=== PATIENT | male | born 1960 ===

== ENCOUNTER 2025-02-07 17:23 | Inpatient (IN) | payer SELFPAY ==
[2025-02-07 17:35] LABS: Glucose,Whole Blood 214 mg/dL (70-110)
[2025-02-07] MEDS: ETOMIDATE 2 MG/ML 10 ML VIAL IVP STA (17:40)
[2025-02-07] MEDS: ROCURONIUM 10 MG/ML (5 ML VIAL) IV STA (17:42)
[2025-02-07 18:06] LABS: ABG Base Excess -4.4 mmol/L; ABG HCO3 22 mmol/L (21-25); ABG Oxygen Saturation 99.8 % (94-97); ABG PCO2 46 mmHg (35-45); ABG PO2 244 mmHg (83-108); ABG TCO2 24 mmol/L (19-24); Allen Test Performed? Yes
[2025-02-07] MEDS: SODIUM CHLORIDE 0.9% 1,000 ML IV STA (18:11)
[2025-02-07 18:15] LABS: HGB 14.5 g/dL (13.0-17.0); MCHC 34.5 g/dL (32.0-37.0); MCV 89.9 fL (80.0-97.0); Mean Platelet Volume 10.6 fL (9.5-12.2); Platelet Count 229 10*3/uL (140-440); RBC 4.67 10*6/uL (4.40-5.60); RDW 12.1 % (11.5-14.5); WBC 13.43 10*3/uL (4.50-10.00)
[2025-02-07 18:21] LABS: ALT 94 U/L (4-49); African American GFR (CKD) 81 (>60 ml/min/1.73 sqM); Albumin 4.2 g/dL (3.5-5.0); Alcohol <10 mg/dL; Anion Gap 19 mmol/L; Blood Urea Nitrogen 21 mg/dL (9-20); Calcium 8.7 mg/dL (8.4-10.2); Carbon Dioxide 20 mmol/L (22-30); Chloride 101 mmol/L (98-107); Glucose 189 mg/dL (74-99); Non-African American GFR(CKD) 70 (>60 ml/min/1.73 sqM); Sodium 140 mmol/L (137-145); Total Bilirubin 0.5 mg/dL (0.2-1.3); Total Protein 6.8 g/dL (6.3-8.2)
[2025-02-07 18:22] LABS: AST 112 U/L (17-59); Alkaline Phosphatase 70 U/L (38-126); Potassium 3.7 mmol/L (3.5-5.1)
[2025-02-07 18:29] LABS: NT-Pro-B-Type Natriuretic Pept 181 pg/mL
[2025-02-07 18:34] LABS: Prothrombin Time 10.6 sec (10.0-12.5)
[2025-02-07 18:40] LABS: Appearance,Urine Clear (Clear); Bilirubin,Urine Negative (Negative); Blood,Urine Small (Negative); Color,Urine Colorless; Glucose,Urine (UA) Trace (Negative); Ketones,Urine Negative (Negative); Leukocyte Esterase,Urine Negative (Negative); Mucus,Urine Rare /hpf; Nitrite,Urine Negative (Negative); PH, Urine 6.5 (5.0-8.0); Protein,Urine 2+ (Negative); RBC,Urine 3 /hpf (0-5); Urobilinogen,Urine <2.0 mg/dL (<2.0); WBC,Urine 6 /hpf (0-5)
[2025-02-07 18:42] LABS: Partial Thromboplastin Time 21.1 sec (22.0-30.0)
[2025-02-07 18:44] LABS: Lymphocytes # (M) 8.19 k/uL (1.0-4.8); Monocytes # (M) 0.81 k/uL (0-1.0); Neutrophils # (M) 4.43 k/uL (1.3-7.7); Neutrophils % (M) 33 %; Nucleated Red Blood Cells 0 /100 WBC (0-0); Total Cells Counted 100
[2025-02-07 18:45] LABS: Large Platelets Present; Polychromasia Present
[2025-02-07 18:50] LABS: Amphetamine Screen,Urine Not Detected (NotDetected); Barbiturate Screen,Urine Not Detected (NotDetected); Benzodiazepines Screen,Urine Not Detected (NotDetected); Cocaine Screen,Urine Not Detected (NotDetected); Methadone Screen, Urine Not Detected (NotDetected); Opiate Screen,Urine Not Detected (NotDetected); Oxycodone Screen, Urine Not Detected (NotDetected); Phencyclidine Screen,Urine Not Detected (NotDetected); Tricyclic Antidepressant,Urine Not Detected (NotDetected); Urn Cannabinoid Scrn Not Detected (NotDetected)
[2025-02-07] MEDS: ASPIRIN 300 MG SUPP RECTAL STA (18:55)
--- NOTE | 2025-02-07 19:27 | CT ---
EXAMINATION TYPE: CT brain melvin wo con DATE OF EXAM: 02/07/2025 6:55 PM COMPARISON: None. CLINICAL INDICATION: Male, 64 years old with history of arrest, fall, cardiac arrest, fall, pain TECHNIQUE: CT of the brain is performed utilizing 3 mm thick sections through the posterior fossa and 3 mm thick sections through the remaining calvarium. Study is performed within 24 hours of arrival to the hospital. Contrast used: mL of , (none if empty) CT DLP: 1715.1 mGycm, Automated exposure control for dose reduction was used. FINDINGS: No abnormal hyperdensity is present to suggest an acute intracranial hemorrhage. No mass lesion is evident. No acute infarcts are evident. Ventricles and sulci are appropriate for the patient age. Paranasal sinuses and mastoid air cells within the [id number] are clear. IMPRESSIONS: 1. No acute intracranial process. Follow-up MRI can be performed as clinically indicated. CT cervical spine. COMPARISON: None TECHNIQUE: CT of the cervical spine is performed in the axial plane at 2 mm thick sections. Reconstr ucted images in the coronal, and sagittal plane are reviewed on the computer. FINDINGS: No acute fractures are evident. Vertebral body alignment is normal. Degenerative mild loss of disc height is present C3-4 C4-5 C5-6 and C6-7. Small amount spondylosis is present. Vertebral body heights are preserved. There is some posterior longitudinal ligament calcification at the C4-5 level. This has mild anterior thecal sac compression. No AP spinal canal stenosis is present. Neural foramen are patent. No neural foraminal stenosis is evident. Endotracheal tube tip is above the fr[place]. Nasogastric tube is present within the [id number]. IMPRESSION: 1. Degenerative disc changes with some mild endplate changes most notably C4-5. No spinal canal steno sis is present. 2. No acute osseous abnormality radiographically apparent [facility], , 02/07/2025 7:25 PM
--- NOTE | 2025-02-07 19:29 | XR ---
EXAMINATION TYPE: XR chest 1V portable DATE OF EXAM: 02/07/2025 6:17 PM COMPARISON: None. CLINICAL INDICATION: Male, 64 years old with history of post intubation, Central line, gastric line, TECHNIQUE: XR chest 1V portable view(s) obtained. FINDINGS: The heart size is normal. The pulmonary vasculature is normal. Left lower lobe infiltrate with air bronchograms appears to be present. Correlate for pneumonia. Foll ow-up is recommended. Endotracheal tube tip is 2.8 cm above the fransisco. Nasogastric tube transverses the thorax. IMPRESSION: 1. Left lower lobe infiltrate. Correlate for pneumonia. 2. Lines and catheters discussed above. [facility], , 02/07/2025 7:27 PM
[2025-02-07] MEDS ORDERED: NALOXONE 0.4 MG/ML 1 ML VIAL IV PRN (19:57)
[2025-02-07] MEDS ORDERED: Potassium Replacement Protocol 1 EACH MISC MISCELLANE PRN (19:57)
[2025-02-07] MEDS ORDERED: Magnesium Replacement Protocol 1 EACH MISC MISCELLANE PRN (19:57)
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
[2025-02-07] MEDS: DEXTROSE 5% IN WATER 100 ML with AMIODARONE 150 MG IV ONE (20:16)
[2025-02-07] MEDS: AMIODARONE 360 MG in DEXTROSE 5% IN WATER 200 ML IV ONE (20:41)
[2025-02-07] MEDS: SODIUM CHLORIDE 0.9% 1,000 ML IV SCH (21:59)
[2025-02-07] MEDS: POTASSIUM CHLORIDE 10 MEQ in WATER FOR INJECTION 1 100ML.BAG IVPB SCH (22:37)
[2025-02-08 00:12] LABS: Glucose,Whole Blood 122 mg/dL (70-110)
[2025-02-08] MEDS: AMIODARONE 450 MG in DEXTROSE 5% IN WATER 250 ML IV SCH (01:32)
--- NOTE | 2025-02-08 02:50 | XR ---
EXAM: XR Chest, 1 View CLINICAL HISTORY: ITS.REASON XR Reason: central line placement TECHNIQUE: Frontal view of the chest. COMPARISON: No previous studies. FINDINGS: Lungs: Unremarkable. No consolidation. Pleural space: Unremarkable. No pneumothorax. Heart: Cardiomegaly. Mediastinum: Unremarkable. Normal mediastinal contour. Bones/joints: Unremarkable. No acute fracture. Tubes, lines and devices: The side-port of NG tube is near the gastroesophageal junction. As a precaution measure, advised that NG tube be advanced 3-4 cm. Endotracheal tube is noted in place with its distal tip approximate 4.6 cm of the fransisco. NG tube is noted in place with its tip and side-port below the diaphragm. Other findings: Hypoaeration. IMPRESSION: 1. Endotracheal tube is in good position. 2. Tip of the NG tube is below the diaphragm. 3. The side-port is near the gastroesophageal junction. 4. I advised that NG tube be advanced by 3-4 cm. 5. Hypoaeration. 6. Cardiomegaly.
[2025-02-08 03:32] LABS: Basophils # (A) 0.04 10*3/uL (0.00-0.10); Basophils % (A) 0.3 %; Eosinophils # (A) 0.01 10*3/uL (0.04-0.35); Eosinophils % (A) 0.1 %; HCT 38.7 % (39.6-50.0); HGB 13.4 g/dL (13.0-17.0); Lymphocytes # (A) 1.11 10*3/uL (0.90-5.00); Lymphocytes % (A) 7.8 %; MCHC 34.6 g/dL (32.0-37.0); MCV 89.6 fL (80.0-97.0); Mean Platelet Volume 10.3 fL (9.5-12.2); Monocytes # (A) 1.08 10*3/uL (0.20-1.00); Monocytes % (A) 7.6 %; Neutrophils # (A) 11.94 10*3/uL (1.80-7.70); Neutrophils % (A) 83.7 %; Platelet Count 198 10*3/uL (140-440); RBC 4.32 10*6/uL (4.40-5.60); RDW 12.2 % (11.5-14.5); WBC 14.25 10*3/uL (4.50-10.00)
[2025-02-08 04:18] LABS: ALT 92 U/L (4-49); AST 82 U/L (17-59); African American GFR (CKD) >90 (>60 ml/min/1.73 sqM); Albumin 3.6 g/dL (3.5-5.0); Alkaline Phosphatase 66 U/L (38-126); Anion Gap 5 mmol/L; Blood Urea Nitrogen 22 mg/dL (9-20); Calcium 8.2 mg/dL (8.4-10.2); Carbon Dioxide 25 mmol/L (22-30); Chloride 103 mmol/L (98-107); Glucose 117 mg/dL (74-99); Non-African American GFR(CKD) 88 (>60 ml/min/1.73 sqM); Sodium 133 mmol/L (137-145); Total Bilirubin 0.5 mg/dL (0.2-1.3); Total Protein 6.2 g/dL (6.3-8.2)
[2025-02-08 05:07] LABS: ABG Base Excess -1.6 mmol/L; ABG HCO3 23 mmol/L (21-25); ABG Oxygen Saturation 99.6 % (94-97); ABG PCO2 39 mmHg (35-45); ABG PH 7.39 (7.35-7.45); ABG PO2 151 mmHg (83-108); ABG TCO2 24 mmol/L (19-24); Allen Test Performed? Yes
[2025-02-08] MEDS ORDERED: SODIUM BICARB 8.4% 50 ML SYR (1 MEQ/ML) IV STA (05:17)
[2025-02-08] MEDS ORDERED: DEXTROSE 5% IN WATER 1,000 ML with SODIUM BICARB (1 MEQ/ML) 150 ML IV SCH (05:40)
[2025-02-08] MEDS: PANTOPRAZOLE 40 MG/10 ML VIAL IVP SCH (09:07)
[2025-02-08] MEDS: CHLORHEXIDINE GLUCONATE 15 ML CUP MUCOUS MEM SCH (09:07)
[2025-02-08] MEDS: ENOXAPARIN 40 MG/0.4 ML SYRINGE SQ SCH (09:07)
--- NOTE | 2025-02-08 09:40 | P.CRDCN ---
History of Present Illness Consult date: 02/08/25 History of present illness: History of Present Illness: The patient is a 64-year-old male, [place] in origin who presented to the emergency room [place]. CPR was started, EMS found him in ventricular fibrillation. He received 3 rounds of defibrillation and epi. His downtime was 10 minutes prior to congregation of rhythm. Brought into the emergency room, was intubated. His EKG showed no acute ST segment elevation. He has been in sinus mechanism since admission. He continues to be on IV amiodarone. He is not responsive. He is on no vasopressors. His urinary output is stable. No other history is available. His chest x-ray showed no acute infiltrate. His initial troponin was 0.014. Medications: Not available Review of Systems: Could not be obtained the patient is intubated Physical Examination: 64-year-old male, intubated and sedated,Blood pressure 103/60, Heart rate 60 Head: Normocephalic. Eyes: Sclerae nonicteric. Pupils fixed and nonreactive Neck: Good carotid upstroke, no bruit, no jugular venous distention. Lungs: Clear to auscultation. Heart: Regular rate and rhythm, S1-S2, no S3, no rub. No murmur. Abdomen: Soft , positive bowel sounds no organomegaly. Extremities: No edema, intact distal pulses. Labs: Hemoglobin 14.5, WBC 13.4, pH 7.3, BUN 21, creatinine 1.09. EKG: Sinus mechanism with occasional PVCs and nonspecific ST-T wave changes Impression: 1. Cardiac arrest with ventricular fibrillation, no evidence of acute ST segment changes on EKG. Possibility of acute ischemic event cannot be totally excluded 2. Anoxic encephalopathy, severity unknown Plan: 1. Obtain an echocardiogram with Doppler 2. Continue IV amiodarone 3. Follow troponin 4. Add beta-kane, statin and aspirin 5. Depending on the results of the echo and the neurological status further recommendations will be made 6. Prognosis is guarded, thank you for this consult we will follow with you. Past Medical History Past Medical History: Hypertension, Prostate Disorder History of Any Multi-Drug Resistant Organisms: None Reported Past Surgical History: No Surgical Hx Reported Smoking Status: Never smoker Past Alcohol Use History: Unable to Obtain Past Drug Use History: Unable to Obtain Medications and Allergies Allergies Allergy/AdvReac Type Severity Reaction Status Date / Time Unable to Assess Allergy Verified 02/07/25 17:42 Physical Exam Vitals: Vital Signs Temp Pulse Pulse Resp BP BP Pulse Ox 02/08/25 07:30 61 18 103/61 98 02/08/25 07:15 61 18 103/61 98 02/08/25 07:00 61 18 95/63 98 02/08/25 06:45 60 17 95/63 98 02/08/25 06:30 60 17 99/63 98 02/08/25 06:15 62 15 99/63 98 02/08/25 06:00 61 18 100/64 98 02/08/25 05:45 60 18 100/64 99 02/08/25 05:30 63 16 100/67 98 02/08/25 05:15 61 17 100/67 99 02/08/25 05:00 61 16 103/67 98 02/08/25 04:45 60 18 103/67 99 02/08/25 04:30 60 17 98/67 98 02/08/25 04:15 61 16 98/67 98 02/08/25 04:00 60 18 99/70 99 02/08/25 03:45 62 16 99/70 98 02/08/25 03:30 61 15 101/68 99 02/08/25 03:15 63 17 101/68 99 02/08/25 03:00 98.0 F 62 17 95/63 100 02/08/25 02:57 02/08/25 02:45 60 14 95/63 98 02/08/25 02:30 64 16 94/62 98 02/08/25 02:15 64 16 94/62 99 02/08/25 02:00 65 16 88/61 99 02/08/25 01:45 63 16 88/61 98 02/08/25 01:30 67 16 89/60 99 02/08/25 01:15 68 16 89/60 99 02/08/25 01:00 98.0 F 68 17 117/66 99 02/08/25 00:45 68 16 117/66 99 02/08/25 00:30 21 122/71 98 02/08/25 00:15 118/73 02/08/25 00:14 118/73 02/07/25 23:00 20 99/72 02/07/25 22:53 02/07/25 22:00 18 102/75 02/07/25 21:00 82 20 101/74 02/07/25 20:00 98 F 80 22 115/98 02/07/25 19:00 87 24 128/87 100 02/07/25 18:35 84 24 121/78 97 02/07/25 18:25 83 24 107/69 100 02/07/25 18:10 84 24 121/78 100 02/07/25 17:55 86 24 120/91 100 02/07/25 17:43 02/07/25 17:40 92 24 127/86 100 02/07/25 17:36 104 H 18 135/97 100 02/07/25 17:30 90 02/07/25 17:27 91 22 106/78 100 FiO2 02/08/25 07:30 02/08/25 07:15 60 02/08/25 07:00 02/08/25 06:45 02/08/25 06:30 02/08/25 06:15 02/08/25 06:00 60 02/08/25 05:45 02/08/25 05:30 02/08/25 05:15 02/08/25 05:00 60 02/08/25 04:45 02/08/25 04:30 02/08/25 04:15 02/08/25 04:00 60 02/08/25 03:45 02/08/25 03:30 02/08/25 03:15 02/08/25 03:00 60 02/08/25 02:57 60 02/08/25 02:45 02/08/25 02:30 02/08/25 02:15 02/08/25 02:00 02/08/25 01:45 02/08/25 01:30 02/08/25 01:15 02/08/25 01:00 60 02/08/25 00:45 02/08/25 00:30 02/08/25 00:15 02/08/25 00:14 02/07/25 23:00 60 02/07/25 22:53 60 02/07/25 22:00 60 02/07/25 21:00 60 02/07/25 20:00 60 02/07/25 19:00 02/07/25 18:35 02/07/25 18:25 02/07/25 18:10 02/07/25 17:55 02/07/25 17:43 100 02/07/25 17:40 100 02/07/25 17:36 02/07/25 17:30 02/07/25 17:27 Intake and Output 02/07/25 02/08/25 02/08/25 22:59 06:59 14:59 Intake Total 300.000 966.680 250.327 Output Total 325 445 100 - 521.680 150.327 Intake: IV 200 700 116.67 Amiodarone 450 mg In 16.67 Dextrose 5% in Water 250 ml @ 0.5 MG/MIN 16.667 mls/hr IV .Q15H [place] Rx#: [id number] Sodium Chloride 0.9% 1, 200 700 100 000 ml @ 100 mls/hr IV . Q10H [place] Rx#:[id number] Intake, IV Titration 100.000 266.680 133.657 Amount Amiodarone 450 mg In 66.68 Dextrose 5% in Water 250 ml @ 0.5 MG/MIN 16.667 mls/hr IV .Q15H [place] Rx#: [id number] propofoL 1,000 mg In 100.000 200.000 133.657 Empty Bag 1 bag @ 15 MCG/ KG/MIN 14.288 mls/hr IV . Q7H [place] Rx#:[id number] Output: Urine 325 445 100 Other: Voiding Method Indwelling Catheter Indwelling Catheter Weight 99.79 kg 109.8 kg Results 02/08/25 03:10 02/08/25 03:10 Cardiac Enzymes 02/07/25 02/07/25 02/08/25 Range/Units 17:43 17:43 03:10 AST 112 H 82 H (17-59) U/L Troponin I 0.014 (0.000-0.034) ng/mL Coagulation 02/07/25 Range/Units 17:43 PT 10.6 (10.0-12.5) sec APTT 21.1 L (22.0-30.0) sec CBC 02/07/25 02/08/25 Range/Units 17:43 03:10 WBC 13.43 H 14.25 H (4.50-10.00) 10*3/uL RBC 4.67 4.32 L (4.40-5.60) 10*6/uL Hgb 14.5 13.4 (13.0-17.0) g/dL Hct 42.0 38.7 L (39.6-50.0) % Plt Count 229 198 (140-440) 10*3/uL Comprehensive Metabolic Panel 02/07/25 02/08/25 Range/Units 17:43 03:10 Sodium 140 133 L (137-145) mmol/L Potassium 3.7 5.0 (3.5-5.1) mmol/L Chloride 101 103 (98-107) mmol/L Carbon Dioxide 20 L 25 (22-30) mmol/L BUN 21 H 22 H (9-20) mg/dL Creatinine 1.09 0.91 (0.66-1.25) mg/dL Glucose 189 H 117 H (74-99) mg/dL Calcium 8.7 8.2 L (8.4-10.2) mg/dL AST 112 H 82 H (17-59) U/L ALT 94 H 92 H (4-49) U/L Alkaline Phosphatase 70 66 (38-126) U/L Total Protein 6.8 6.2 L (6.3-8.2) g/dL Albumin 4.2 3.6 (3.5-5.0) g/dL Current Medications Generic Name Dose Route Start Last Admin Trade Name Freq PRN Reason Stop Dose Admin Albuterol/Ipratropium 3 ml 02/08/25 12:00 Ipratropium-Albuterol 3 Ml Neb INHALATION RT-Q4H [place] Chlorhexidine Gluconate 15 ml 02/08/25 09:00 02/08/25 09:07 Chlorhexidine Gluconate 15 Ml Cup MUCOUS MEM 15 ml BID [place] Administration Enoxaparin Sodium 40 mg 02/08/25 09:00 02/08/25 09:07 Enoxaparin 40 Mg/0.4 Ml Syringe SQ 40 mg DAILY [place] Administration Propofol 1,000 mg/ IV Solution 100 mls @ 14.288 mls/hr 02/07/25 17:45 02/08/25 09:08 IV 40 mcg/kg/min .Q7H [place] 38.102 mls/hr Administration Protocol 15 MCG/KG/MIN Amiodarone HCl 450 mg/ 250 mls @ 16.667 mls/hr 02/08/25 01:00 02/08/25 01:32 Dextrose/Water IV 02/08/25 18:59 0.5 mg/min .Q15H [place] 16.667 mls/hr Administration Protocol 0.5 MG/MIN Sodium Chloride 1,000 mls @ 100 mls/hr 02/07/25 20:00 02/08/25 08:15 Saline 0.9% IV 100 mls/hr .Q10H [place] Administration Miscellaneous Information 1 each 02/07/25 19:57 Potassium Replacement Protocol 1 Each Misc MISCELLANE DAILY PRN Per Protocol Miscellaneous Information 1 each 02/07/25 19:57 Magnesium Replacement Protocol 1 Each Misc MISCELLANE DAILY PRN Per Protocol Protocol Naloxone HCl 0.2 mg 02/07/25 19:57 Naloxone 0.4 Mg/Ml 1 Ml Vial IV Q2M PRN Opioid Reversal Pantoprazole Sodium 40 mg 02/08/25 09:00 02/08/25 09:07 Pantoprazole 40 Mg/10 Ml Vial IVP 40 mg DAILY [place] Administration Intake and Output 02/07/25 02/08/25 02/08/25 22:59 06:59 14:59 Intake Total 300.000 966.680 250.327 Output Total 325 445 100 Balance -25 521.680 150.327 Intake: IV 200 700 116.67 Amiodarone 450 mg In 16.67 Dextrose 5% in Water 250 ml @ 0.5 MG/MIN 16.667 mls/hr IV .Q15H [place] Rx#: [id number] Sodium Chloride 0.9% 1, 200 700 100 000 ml @ 100 mls/hr IV . Q10H [place] Rx#:[id number] Intake, IV Titration 100.000 266.680 133.657 Amount Amiodarone 450 mg In 66.68 Dextrose 5% in Water 250 ml @ 0.5 MG/MIN 16.667 mls/hr IV .Q15H [place] Rx#: [id number] propofoL 1,000 mg In 100.000 200.000 133.657 Empty Bag 1 bag @ 15 MCG/ KG/MIN 14.288 mls/hr IV . Q7H [place] Rx#:[id number] Output: Urine 325 445 100 Other: Voiding Method Indwelling Catheter Indwelling Catheter Weight 99.79 kg 109.8 kg 02/08/25 03:10 02/08/25 03:10
[2025-02-08] MEDS ORDERED: HEPARIN SODIUM 1,000 UN/ML (10ML VL) IV PRN (09:41)
[2025-02-08 10:17] LABS: Basophils # (A) 0.03 10*3/uL (0.00-0.10); Basophils % (A) 0.3 %; Eosinophils # (A) 0.03 10*3/uL (0.04-0.35); Eosinophils % (A) 0.3 %; HCT 36.7 % (39.6-50.0); HGB 12.8 g/dL (13.0-17.0); Lymphocytes # (A) 1.25 10*3/uL (0.90-5.00); Lymphocytes % (A) 10.7 %; MCHC 34.9 g/dL (32.0-37.0); MCV 88.9 fL (80.0-97.0); Monocytes % (A) 7.7 %; Neutrophils # (A) 9.47 10*3/uL (1.80-7.70); Neutrophils % (A) 80.7 %; Platelet Count 178 10*3/uL (140-440); RBC 4.13 10*6/uL (4.40-5.60); RDW 12.3 % (11.5-14.5); WBC 11.72 10*3/uL (4.50-10.00)
[2025-02-08] MEDS: METOPROLOL TARTRATE 25 MG TAB PO SCH (10:23)
[2025-02-08] MEDS: HEPARIN SOD,PORK IN 0.45% NACL 25,000 UNIT in 0.45% NACL 1 250ML.BAG IV SCH (10:24)
[2025-02-08] MEDS: ATORVASTATIN 40 MG TAB PO SCH (10:24)
[2025-02-08] MEDS: ASPIRIN 81 MG PO SCH (10:24)
[2025-02-08] MEDS: IPRATROPIUM-ALBUTEROL 3 ML NEB INHALATION SCH (11:09)
--- NOTE | 2025-02-08 11:09 | P.HPIM ---
History of Present Illness Patient is a 64-year-old male admitted after cardiopulmonary resuscitation. Patient had ventricular fibrillation received 3 rounds of defibrillation and epinephrine and downtime was 10 minutes. Patient does have drains intact brainstem function patient is intubated and still sedated patient is on IV amiodarone drip cardiology evaluated the patient patient has elevated troponin which was a second 1 about 2.4. First troponin was negative. Patient also has elevated D-dimer because of which patient will undergo CT angio of the chest to rule out any pulmonary embolism that may have contributed to his cardiopulmonary arrest patient had a CT of the head and neck which did not show any significant abnormality chest x-ray showed appropriate placement of endotracheal tube cardiomegaly without any other significant abnormalities. Patient does have intact brainstem function patient is breathing over the ventilator does have pupillary reflexes. Patient although is on muscle relaxants as he is intubated. Patient is not on any pressor support patient is on IV heparin at this time. REVIEW OF SYSTEMS: All other systems are negative except those mentioned in the HPI PHYSICAL EXAMINATION: GENERAL: Intubated sedated with intact brainstem function. HEENT: Pupils are round and equally reacting to light. EOMI. No scleral icterus. No conjunctival pallor. Normocephalic, atraumatic. No pharyngeal erythema. No thyromegaly. CARDIOVASCULAR: S1 and S2 present. No murmurs, rubs, or gallops. PULMONARY: Chest is clear to auscultation, no wheezing or crackles. ABDOMEN: Soft, nontender, nondistended, normoactive bowel sounds. No palpable organomegaly. MUSCULOSKELETAL: No joint swelling or deformity. EXTREMITIES: No cyanosis, clubbing, or pedal edema. NEUROLOGICAL: As mentioned above SKIN: No rashes. Assessment and plan -Cardiorespiratory arrest status post CPR secondary to ventricular fibrillation for which patient is on amiodarone - Elevated troponins can be secondary to chest compressions but cannot rule out any acute coronary event patient is on IV heparin at this time EKG did not show any acute ST-T wave changes - Possible anoxic encephalopathy although patient has intact brainstem function at this time - Elevated D-dimer will rule out pulmonary embolism patient will undergo CT angio of the chest - Hypertension - Hyperlipidemia - Benign prostatic hypertrophy - For above-mentioned chronic chronic medical problems patient will be on appropriate home medications DVT prophylaxis: On IV heparin at this time Past Medical History Past Medical History: Hypertension, Prostate Disorder History of Any Multi-Drug Resistant Organisms: None Reported Past Surgical History: No Surgical Hx Reported Smoking Status: Never smoker Past Alcohol Use History: Unable to Obtain Past Drug Use History: Unable to Obtain Medications and Allergies Home Medications Medication Instructions Recorded Confirmed Type Dutasteride [Avodart] 0.5 mg PO W/LUNCH 02/08/25 02/08/25 History Irbesartan [Avapro] 150 mg PO DAILY 02/08/25 02/08/25 History Metoprolol Tartrate [Lopressor] 100 mg PO DAILY 02/08/25 02/08/25 History Rosuvastatin [Crestor] 20 mg PO HS 02/08/25 02/08/25 History amLODIPine [Norvasc] 10 mg PO HS 02/08/25 02/08/25 History Allergies Allergy/AdvReac Type Severity Reaction Status Date / Time Unable to Assess Allergy Verified 02/07/25 17:42 Physical Exam Vitals: Vital Signs Temp Pulse Pulse Resp BP BP Pulse Ox 02/08/25 10:15 21 96 02/08/25 10:00 61 16 105/66 95 02/08/25 09:45 60 19 96 02/08/25 09:30 61 18 96 02/08/25 09:15 65 20 96 02/08/25 09:00 60 18 99/64 95 02/08/25 08:45 60 18 96 02/08/25 08:30 18 96 02/08/25 08:15 58 L 17 98 02/08/25 08:00 98.4 F 61 17 104/65 98 02/08/25 07:45 60 18 98 02/08/25 07:30 61 18 103/61 98 02/08/25 07:15 61 18 103/61 98 02/08/25 07:00 61 18 95/63 98 02/08/25 06:45 60 17 95/63 98 02/08/25 06:30 60 17 99/63 98 02/08/25 06:15 62 15 99/63 98 02/08/25 06:00 61 18 100/64 98 02/08/25 05:45 60 18 100/64 99 02/08/25 05:30 63 16 100/67 98 02/08/25 05:15 61 17 100/67 99 02/08/25 05:00 61 16 103/67 98 02/08/25 04:45 60 18 103/67 99 02/08/25 04:30 60 17 98/67 98 02/08/25 04:15 61 16 98/67 98 02/08/25 04:00 60 18 99/70 99 02/08/25 03:45 62 16 99/70 98 02/08/25 03:30 61 15 101/68 99 02/08/25 03:15 63 17 101/68 99 02/08/25 03:00 98.0 F 62 17 95/63 100 02/08/25 02:57 02/08/25 02:45 60 14 95/63 98 02/08/25 02:30 64 16 94/62 98 02/08/25 02:15 64 16 94/62 99 02/08/25 02:00 65 16 88/61 99 02/08/25 01:45 63 16 88/61 98 02/08/25 01:30 67 16 89/60 99 02/08/25 01:15 68 16 89/60 99 02/08/25 01:00 98.0 F 68 17 117/66 99 02/08/25 00:45 68 16 117/66 99 02/08/25 00:30 21 122/71 98 02/08/25 00:15 118/73 02/08/25 00:14 118/73 02/07/25 23:00 20 99/72 02/07/25 22:53 02/07/25 22:00 18 102/75 02/07/25 21:00 82 20 101/74 02/07/25 20:00 98 F 80 22 115/98 02/07/25 19:00 87 24 128/87 100 02/07/25 18:35 84 24 121/78 97 02/07/25 18:25 83 24 107/69 100 02/07/25 18:10 84 24 121/78 100 02/07/25 17:55 86 24 120/91 100 02/07/25 17:43 02/07/25 17:40 92 24 127/86 100 02/07/25 17:36 104 H 18 135/97 100 02/07/25 17:30 90 02/07/25 17:27 91 22 106/78 100 FiO2 02/08/25 10:15 02/08/25 10:00 02/08/25 09:45 02/08/25 09:30 02/08/25 09:15 02/08/25 09:00 02/08/25 08:45 02/08/25 08:30 02/08/25 08:15 02/08/25 08:00 60 02/08/25 07:45 02/08/25 07:30 02/08/25 07:15 60 02/08/25 07:00 02/08/25 06:45 02/08/25 06:30 02/08/25 06:15 02/08/25 06:00 60 02/08/25 05:45 02/08/25 05:30 02/08/25 05:15 02/08/25 05:00 60 02/08/25 04:45 02/08/25 04:30 02/08/25 04:15 02/08/25 04:00 60 02/08/25 03:45 02/08/25 03:30 02/08/25 03:15 02/08/25 03:00 60 02/08/25 02:57 60 02/08/25 02:45 02/08/25 02:30 02/08/25 02:15 02/08/25 02:00 02/08/25 01:45 02/08/25 01:30 02/08/25 01:15 02/08/25 01:00 60 02/08/25 00:45 02/08/25 00:30 02/08/25 00:15 02/08/25 00:14 02/07/25 23:00 60 02/07/25 22:53 60 02/07/25 22:00 60 02/07/25 21:00 60 02/07/25 20:00 60 02/07/25 19:00 02/07/25 18:35 02/07/25 18:25 02/07/25 18:10 02/07/25 17:55 02/07/25 17:43 100 02/07/25 17:40 100 02/07/25 17:36 02/07/25 17:30 02/07/25 17:27 Intake and Output 02/07/25 02/08/25 02/08/25 22:59 06:59 14:59 Intake Total 300.000 966.680 600.337 Output Total 325 445 500 -25 521.680 100.337 Intake: IV 200 700 466.68 Amiodarone 450 mg In 66.68 Dextrose 5% in Water 250 ml @ 0.5 MG/MIN 16.667 mls/hr IV .Q15H [place] Rx#: [id number] Sodium Chloride 0.9% 1, 200 700 400 000 ml @ 100 mls/hr IV . Q10H [place] Rx#:[id number] Intake, IV Titration 100.000 266.680 133.657 Amount Amiodarone 450 mg In 66.68 Dextrose 5% in Water 250 ml @ 0.5 MG/MIN 16.667 mls/hr IV .Q15H [place] Rx#: [id number] propofoL 1,000 mg In 100.000 200.000 133.657 Empty Bag 1 bag @ 15 MCG/ KG/MIN 14.288 mls/hr IV . Q7H [place] Rx#:[id number] Output: Urine 325 445 500 Other: Voiding Method Indwelling Catheter Indwelling Catheter Weight 99.79 kg 109.8 kg ABP, PAP, CO, CI - Last 8 Hours Arterial Blood Pressure 107/58 Arterial Blood Pressure 105/54 Arterial Blood Pressure 95/54 Arterial Blood Pressure 101/55 Arterial Blood Pressure 107/56 Arterial Blood Pressure 107/54 Arterial Blood Pressure 99/55 Results CBC & Chem 7: 02/08/25 10:10 02/08/25 03:10 Labs: Abnormal Lab Results - Last 24 Hours (Table) 02/07/25 02/07/25 02/07/25 Range/Units 17:26 17:43 17:43 WBC 13.43 H (4.50-10.00) 10*3/uL RBC (4.40-5.60) 10*6/uL Hgb (13.0-17.0) g/dL Hct (39.6-50.0) % Immature Gran # 0.15 H (0.00-0.04) 10*3/uL Neutrophils # (1.80-7.70) 10*3/uL Lymphocytes # (Manual) 8.19 H (1.0-4.8) k/uL Monocytes # (0.20-1.00) 10*3/uL Eosinophils # (0.04-0.35) 10*3/uL APTT 21.1 L (22.0-30.0) sec D-Dimer (<0.60) mg/L FEU ABG pH (7.35-7.45) ABG pCO2 (35-45) mmHg ABG pO2 (83-108) mmHg ABG O2 Saturation (94-97) % Sodium (137-145) mmol/L Carbon Dioxide (22-30) mmol/L BUN (9-20) mg/dL Glucose (74-99) mg/dL POC Glucose (mg/dL) 214 H (70-110) mg/dL Plasma Lactic Acid [place] (0.7-2.0) mmol/L Calcium (8.4-10.2) mg/dL AST (17-59) U/L ALT (4-49) U/L Troponin I (0.000-0.034) ng/mL Total Protein (6.3-8.2) g/dL Urine Protein (Negative) Urine Glucose (UA) (Negative) Urine Blood (Negative) Urine WBC (0-5) /hpf Urine Mucus (None) /hpf 02/07/25 02/07/25 02/07/25 Range/Units 17:43 17:43 18:03 WBC (4.50-10.00) 10*3/uL RBC (4.40-5.60) 10*6/uL Hgb (13.0-17.0) g/dL Hct (39.6-50.0) % Immature Gran # (0.00-0.04) 10*3/uL Neutrophils # (1.80-7.70) 10*3/uL Lymphocytes # (Manual) (1.0-4.8) k/uL Monocytes # (0.20-1.00) 10*3/uL Eosinophils # (0.04-0.35) 10*3/uL APTT (22.0-30.0) sec D-Dimer (<0.60) mg/L FEU ABG pH 7.30 L (7.35-7.45) ABG pCO2 46 H (35-45) mmHg ABG pO2 244 H (83-108) mmHg ABG O2 Saturation 99.8 H (94-97) % Sodium (137-145) mmol/L Carbon Dioxide 20 L (22-30) mmol/L BUN 21 H (9-20) mg/dL Glucose 189 H (74-99) mg/dL POC Glucose (mg/dL) (70-110) mg/dL Plasma Lactic Acid [place] 5.7 H* (0.7-2.0) mmol/L Calcium (8.4-10.2) mg/dL AST 112 H (17-59) U/L ALT 94 H (4-49) U/L Troponin I (0.000-0.034) ng/mL Total Protein (6.3-8.2) g/dL Urine Protein (Negative) Urine Glucose (UA) (Negative) Urine Blood (Negative) Urine WBC (0-5) /hpf Urine Mucus (None) /hpf 02/07/25 02/07/25 02/08/25 Range/Units 18:22 20:45 00:09 WBC (4.50-10.00) 10*3/uL RBC (4.40-5.60) 10*6/uL Hgb (13.0-17.0) g/dL Hct (39.6-50.0) % Immature Gran # (0.00-0.04) 10*3/uL Neutrophils # (1.80-7.70) 10*3/uL Lymphocytes # (Manual) (1.0-4.8) k/uL Monocytes # (0.20-1.00) 10*3/uL Eosinophils # (0.04-0.35) 10*3/uL APTT (22.0-30.0) sec D-Dimer (<0.60) mg/L FEU ABG pH (7.35-7.45) ABG pCO2 (35-45) mmHg ABG pO2 (83-108) mmHg ABG O2 Saturation (94-97) % Sodium (137-145) mmol/L Carbon Dioxide (22-30) mmol/L BUN (9-20) mg/dL Glucose (74-99) mg/dL POC Glucose (mg/dL) 122 H (70-110) mg/dL Plasma Lactic Acid [place] 2.9 H* (0.7-2.0) mmol/L Calcium (8.4-10.2) mg/dL AST (17-59) U/L ALT (4-49) U/L Troponin I (0.000-0.034) ng/mL Total Protein (6.3-8.2) g/dL Urine Protein 2+ H (Negative) Urine Glucose (UA) Trace H (Negative) Urine Blood Small H (Negative) Urine WBC 6 H (0-5) /hpf Urine Mucus Rare H (None) /hpf 02/08/25 02/08/25 02/08/25 Range/Units 00:49 03:10 03:10 WBC 14.25 H (4.50-10.00) 10*3/uL RBC 4.32 L (4.40-5.60) 10*6/uL Hgb (13.0-17.0) g/dL Hct 38.7 L (39.6-50.0) % Immature Gran # 0.07 H (0.00-0.04) 10*3/uL Neutrophils # 11.94 H (1.80-7.70) 10*3/uL Lymphocytes # (Manual) (1.0-4.8) k/uL Monocytes # 1.08 H (0.20-1.00) 10*3/uL Eosinophils # 0.01 L (0.04-0.35) 10*3/uL APTT (22.0-30.0) sec D-Dimer (<0.60) mg/L FEU ABG pH (7.35-7.45) ABG pCO2 (35-45) mmHg ABG pO2 (83-108) mmHg ABG O2 Saturation (94-97) % Sodium 133 L (137-145) mmol/L Carbon Dioxide (22-30) mmol/L BUN 22 H (9-20) mg/dL Glucose 117 H (74-99) mg/dL POC Glucose (mg/dL) (70-110) mg/dL Plasma Lactic Acid [place] 2.1 H* (0.7-2.0) mmol/L Calcium 8.2 L (8.4-10.2) mg/dL AST 82 H (17-59) U/L ALT 92 H (4-49) U/L Troponin I (0.000-0.034) ng/mL Total Protein 6.2 L (6.3-8.2) g/dL Urine Protein (Negative) Urine Glucose (UA) (Negative) Urine Blood (Negative) Urine WBC (0-5) /hpf Urine Mucus (None) /hpf 0402/08/25 02/08/25 Range/Units 05:05 08:47 08:47 WBC (4.50-10.00) 10*3/uL RBC (4.40-5.60) 10*6/uL Hgb (13.0-17.0) g/dL Hct (39.6-50.0) % Immature Gran # (0.00-0.04) 10*3/uL Neutrophils # (1.80-7.70) 10*3/uL Lymphocytes # (Manual) (1.0-4.8) k/uL Monocytes # (0.20-1.00) 10*3/uL Eosinophils # (0.04-0.35) 10*3/uL APTT (22.0-30.0) sec D-Dimer 6.82 H (<0.60) mg/L FEU ABG pH (7.35-7.45) ABG pCO2 (35-45) mmHg ABG pO2 151 H (83-108) mmHg ABG O2 Saturation 99.6 H (94-97) % Sodium (137-145) mmol/L Carbon Dioxide (22-30) mmol/L BUN (9-20) mg/dL Glucose (74-99) mg/dL POC Glucose (mg/dL) (70-110) mg/dL Plasma Lactic Acid [place] (0.7-2.0) mmol/L Calcium (8.4-10.2) mg/dL AST (17-59) U/L ALT (4-49) U/L Troponin I 2.310 H* (0.000-0.034) ng/mL Total Protein (6.3-8.2) g/dL Urine Protein (Negative) Urine Glucose (UA) (Negative) Urine Blood (Negative) Urine WBC (0-5) /hpf Urine Mucus (None) /hpf 02/08/25 Range/Units 10:10 WBC 11.72 H (4.50-10.00) 10*3/uL RBC 4.13 L (4.40-5.60) 10*6/uL Hgb 12.8 L (13.0-17.0) g/dL Hct 36.7 L (39.6-50.0) % Immature Gran # (0.00-0.04) 10*3/uL Neutrophils # 9.47 H (1.80-7.70) 10*3/uL Lymphocytes # (Manual) (1.0-4.8) k/uL Monocytes # (0.20-1.00) 10*3/uL Eosinophils # 0.03 L (0.04-0.35) 10*3/uL APTT (22.0-30.0) sec D-Dimer (<0.60) mg/L FEU ABG pH (7.35-7.45) ABG pCO2 (35-45) mmHg ABG pO2 (83-108) mmHg ABG O2 Saturation (94-97) % Sodium (137-145) mmol/L Carbon Dioxide (22-30) mmol/L BUN (9-20) mg/dL Glucose (74-99) mg/dL POC Glucose (mg/dL) (70-110) mg/dL Plasma Lactic Acid [place] (0.7-2.0) mmol/L Calcium (8.4-10.2) mg/dL AST (17-59) U/L ALT (4-49) U/L Troponin I (0.000-0.034) ng/mL Total Protein (6.3-8.2) g/dL Urine Protein (Negative) Urine Glucose (UA) (Negative) Urine Blood (Negative) Urine WBC (0-5) /hpf Urine Mucus (None) /hpf
--- NOTE | 2025-02-08 11:24 | P.CNPUL ---
History of Present Illness Consult date: 02/08/25 Requesting physician: Beka Bertrand Reason for consult: other Chief complaint: Cardiac arrest History of present illness: This is a 64-year-old white male from [facility], visiting family in [facility], patient developed an episode of unresponsiveness while at the gas station. CPR was started, EMS arrived and the patient was in a ventricular fibrillation. Patient received 3 rounds of defibrillation and epinephrine by EMS, and his downtime was roughly about 10 minutes. Patient was brought into the ER, intubated, EKG showed no evidence of acute ST segment elevation, his initial troponin was normal, patient was in sinus rhythm, placed empirically on amiodarone, kept on mechanical ventilation and admitted to the ICU. Did not require any pressors since admission, patient seems to be hemodynamically stable, urine output is excellent, patient seems to be perfusing well, CT of the brain on admission was negative for acute CVA or bleed, chest x-ray showed no evidence of infiltrates and no evidence of pulmonary edema. Follow-up troponins and follow-up D-dimer were elevated, hence the patient will have a CT angiogram of the chest, in the meantime he was placed on heparin as per cardiology. After evaluating the patient, I went ahead and placed a right radial arterial line for hemodynamic monitoring and for frequent blood draws, patient will be going down for CT angiogram of the chest to rule out pulmonary embolism. In the meantime we will continue heparin as per protocol. Neurologically could not assess the patient while on propofol, hence I have recommended holding propofol today and assess mental status off propofol if possible. Review of Systems ROS unobtainable: due to endotracheal tube Past Medical History Past Medical History: Hypertension, Prostate Disorder History of Any Multi-Drug Resistant Organisms: None Reported Past Surgical History: No Surgical Hx Reported Smoking Status: Never smoker Past Alcohol Use History: Unable to Obtain Past Drug Use History: Unable to Obtain Medications and Allergies Home Medications Medication Instructions Recorded Confirmed Type Dutasteride [Avodart] 0.5 mg PO W/LUNCH 02/08/25 02/08/25 History Irbesartan [Avapro] 150 mg PO DAILY 02/08/25 02/08/25 History Metoprolol Tartrate [Lopressor] 100 mg PO DAILY 02/08/25 02/08/25 History Rosuvastatin [Crestor] 20 mg PO HS 02/08/25 02/08/25 History amLODIPine [Norvasc] 10 mg PO HS 02/08/25 02/08/25 History Allergies Allergy/AdvReac Type Severity Reaction Status Date / Time Unable to Assess Allergy Verified 02/07/25 17:42 Physical Exam Vitals: Vital Signs Temp Pulse Pulse Resp BP BP Pulse Ox 02/08/25 11:13 55 L 02/08/25 10:15 21 96 02/08/25 10:00 61 16 105/66 95 02/08/25 09:45 60 19 96 02/08/25 09:30 61 18 96 02/08/25 09:15 65 20 96 02/08/25 09:00 60 18 99/64 95 02/08/25 08:45 60 18 96 02/08/25 08:30 18 96 02/08/25 08:15 58 L 17 98 02/08/25 08:00 98.4 F 61 17 104/65 98 02/08/25 07:45 60 18 98 02/08/25 07:30 61 18 103/61 98 02/08/25 07:15 61 18 103/61 98 02/08/25 07:00 61 18 95/63 98 02/08/25 06:45 60 17 95/63 98 02/08/25 06:30 60 17 99/63 98 02/08/25 06:15 62 15 99/63 98 02/08/25 06:00 61 18 100/64 98 02/08/25 05:45 60 18 100/64 99 02/08/25 05:30 63 16 100/67 98 02/08/25 05:15 61 17 100/67 99 02/08/25 05:00 61 16 103/67 98 02/08/25 04:45 60 18 103/67 99 02/08/25 04:30 60 17 98/67 98 02/08/25 04:15 61 16 98/67 98 02/08/25 04:00 60 18 99/70 99 02/08/25 03:45 62 16 99/70 98 02/08/25 03:30 61 15 101/68 99 02/08/25 03:15 63 17 101/68 99 02/08/25 03:00 98.0 F 62 17 95/63 100 02/08/25 02:57 02/08/25 02:45 60 14 95/63 98 02/08/25 02:30 64 16 94/62 98 02/08/25 02:15 64 16 94/62 99 02/08/25 02:00 65 16 88/61 99 02/08/25 01:45 63 16 88/61 98 02/08/25 01:30 67 16 89/60 99 02/08/25 01:15 68 16 89/60 99 02/08/25 01:00 98.0 F 68 17 117/66 99 02/08/25 00:45 68 16 117/66 99 02/08/25 00:30 21 122/71 98 02/08/25 00:15 118/73 02/08/25 00:14 118/73 02/07/25 23:00 20 99/72 02/07/25 22:53 02/07/25 22:00 18 102/75 02/07/25 21:00 82 20 101/74 02/07/25 20:00 98 F 80 22 115/98 02/07/25 19:00 87 24 128/87 100 02/07/25 18:35 84 24 121/78 97 02/07/25 18:25 83 24 107/69 100 02/07/25 18:10 84 24 121/78 100 02/07/25 17:55 86 24 120/91 100 02/07/25 17:43 02/07/25 17:40 92 24 127/86 100 02/07/25 17:36 104 H 18 135/97 100 02/07/25 17:30 90 02/07/25 17:27 91 22 106/78 100 FiO2 02/08/25 11:13 02/08/25 10:15 02/08/25 10:00 02/08/25 09:45 02/08/25 09:30 02/08/25 09:15 02/08/25 09:00 02/08/25 08:45 02/08/25 08:30 02/08/25 08:15 02/08/25 08:00 60 02/08/25 07:45 02/08/25 07:30 02/08/25 07:15 60 02/08/25 07:00 02/08/25 06:45 02/08/25 06:30 02/08/25 06:15 02/08/25 06:00 60 02/08/25 05:45 02/08/25 05:30 02/08/25 05:15 02/08/25 05:00 60 02/08/25 04:45 02/08/25 04:30 02/08/25 04:15 02/08/25 04:00 60 02/08/25 03:45 02/08/25 03:30 02/08/25 03:15 02/08/25 03:00 60 02/08/25 02:57 60 02/08/25 02:45 02/08/25 02:30 02/08/25 02:15 02/08/25 02:00 02/08/25 01:45 02/08/25 01:30 02/08/25 01:15 02/08/25 01:00 60 02/08/25 00:45 02/08/25 00:30 02/08/25 00:15 02/08/25 00:14 02/07/25 23:00 60 02/07/25 22:53 60 02/07/25 22:00 60 02/07/25 21:00 60 02/07/25 20:00 60 02/07/25 19:00 02/07/25 18:35 02/07/25 18:25 02/07/25 18:10 02/07/25 17:55 02/07/25 17:43 100 02/07/25 17:40 100 02/07/25 17:36 02/07/25 17:30 02/07/25 17:27 Intake and Output 02/07/25 02/08/25 02/08/25 22:59 06:59 14:59 Intake Total 300.000 966.680 600.337 Output Total 325 445 500 -25 521.680 100.337 Intake: IV 200 700 466.68 Amiodarone 450 mg In 66.68 Dextrose 5% in Water 250 ml @ 0.5 MG/MIN 16.667 mls/hr IV .Q15H [place] Rx#: [id number] Sodium Chloride 0.9% 1, 200 700 400 000 ml @ 100 mls/hr IV . Q10H [place] Rx#:[id number] Intake, IV Titration 100.000 266.680 133.657 Amount Amiodarone 450 mg In 66.68 Dextrose 5% in Water 250 ml @ 0.5 MG/MIN 16.667 mls/hr IV .Q15H [place] Rx#: [id number] propofoL 1,000 mg In 100.000 200.000 133.657 Empty Bag 1 bag @ 15 MCG/ KG/MIN 14.288 mls/hr IV . Q7H [place] Rx#:[id number] Output: Urine 325 445 500 Other: Voiding Method Indwelling Catheter Indwelling Catheter Weight 99.79 kg 109.8 kg ABP, PAP, CO, CI - Last 8 Hours Arterial Blood Pressure 107/58 Arterial Blood Pressure 105/54 Arterial Blood Pressure 95/54 Arterial Blood Pressure 101/55 Arterial Blood Pressure 107/56 Arterial Blood Pressure 107/54 Arterial Blood Pressure 99/55 64-year-old male, on mechanical ventilation, intubated, sedated, on propofol. Head: Normocephalic. Atraumatic. Eyes: Sclerae nonicteric. Pupils are sluggish Neck: Good carotid upstroke, no bruit, no jugular venous distention. Patient has a right IJ central line however seems to be going into the right subclavian and he does have right femoral triple-lumen catheter placed by ER physician. Lungs: Symmetrical chest expansion, good breath sound bilaterally no rhonchi no wheezes Heart: Regular rate and rhythm, S1-S2, no S3, no rub. No murmur. Abdomen: Soft , nontender, no rebound, positive bowel sounds no organomegaly. Extremities: No edema, intact distal pulses. Neurologic: Could not assess Psychiatric: Could not assess Results - Laboratory Findings CBC and BMP: 02/08/25 10:10 02/08/25 03:10 ABG ABG pH 7.39 (7.35-7.45) 02/08/25 05:05 ABG pCO2 39 mmHg (35-45) 02/08/25 05:05 ABG pO2 151 mmHg (83-108) H 02/08/25 05:05 ABG O2 Saturation 99.6 % (94-97) H 02/08/25 05:05 PT/INR, D-dimer PT 10.6 sec (10.0-12.5) 02/07/25 17:43 INR 1.0 (<1.2) 02/07/25 17:43 D-Dimer 6.82 mg/L FEU (<0.60) H 02/08/25 08:47 Abnormal lab findings: Abnormal Labs 02/07/25 02/07/25 02/07/25 17:26 17:43 17:43 WBC 13.43 H RBC Hgb Hct Immature Gran # 0.15 H Neutrophils # Lymphocytes # (Manual) 8.19 H Monocytes # Eosinophils # APTT 21.1 L D-Dimer ABG pH ABG pCO2 ABG pO2 ABG O2 Saturation Sodium Carbon Dioxide BUN Glucose POC Glucose (mg/dL) 214 H Plasma Lactic Acid [place] Calcium AST ALT Troponin I Total Protein Urine Protein Urine Glucose (UA) Urine Blood Urine WBC Urine Mucus 02/07/25 02/07/25 02/07/25 17:43 17:43 18:03 WBC RBC Hgb Hct Immature Gran # Neutrophils # Lymphocytes # (Manual) Monocytes # Eosinophils # APTT D-Dimer ABG pH 7.30 L ABG pCO2 46 H ABG pO2 244 H ABG O2 Saturation 99.8 H Sodium Carbon Dioxide 20 L BUN 21 H Glucose 189 H POC Glucose (mg/dL) Plasma Lactic Acid [place] 5.7 H* Calcium AST 112 H ALT 94 H Troponin I Total Protein Urine Protein Urine Glucose (UA) Urine Blood Urine WBC Urine Mucus 02/07/25 02/07/25 02/08/25 18:22 20:45 00:09 WBC RBC Hgb Hct Immature Gran # Neutrophils # Lymphocytes # (Manual) Monocytes # Eosinophils # APTT D-Dimer ABG pH ABG pCO2 ABG pO2 ABG O2 Saturation Sodium Carbon Dioxide BUN Glucose POC Glucose (mg/dL) 122 H Plasma Lactic Acid [place] 2.9 H* Calcium AST ALT Troponin I Total Protein Urine Protein 2+ H Urine Glucose (UA) Trace H Urine Blood Small H Urine WBC 6 H Urine Mucus Rare H 02/08/25 02/08/25 02/08/25 00:49 03:10 03:10 WBC 14.25 H RBC 4.32 L Hgb Hct 38.7 L Immature Gran # 0.07 H Neutrophils # 11.94 H Lymphocytes # (Manual) Monocytes # 1.08 H Eosinophils # 0.01 L APTT D-Dimer ABG pH ABG pCO2 ABG pO2 ABG O2 Saturation Sodium 133 L Carbon Dioxide BUN 22 H Glucose 117 H POC Glucose (mg/dL) Plasma Lactic Acid [place] 2.1 H* Calcium 8.2 L AST 82 H ALT 92 H Troponin I Total Protein 6.2 L Urine Protein Urine Glucose (UA) Urine Blood Urine WBC Urine Mucus 02/08/25 02/08/25 02/08/25 05:05 08:47 08:47 WBC RBC Hgb Hct Immature Gran # Neutrophils # Lymphocytes # (Manual) Monocytes # Eosinophils # APTT D-Dimer 6.82 H ABG pH ABG pCO2 ABG pO2 151 H ABG O2 Saturation 99.6 H Sodium Carbon Dioxide BUN Glucose POC Glucose (mg/dL) Plasma Lactic Acid [place] Calcium AST ALT Troponin I 2.310 H* Total Protein Urine Protein Urine Glucose (UA) Urine Blood Urine WBC Urine Mucus 02/08/25 10:10 WBC 11.72 H RBC 4.13 L Hgb 12.8 L Hct 36.7 L Immature Gran # Neutrophils # 9.47 H Lymphocytes # (Manual) Monocytes # Eosinophils # 0.03 L APTT D-Dimer ABG pH ABG pCO2 ABG pO2 ABG O2 Saturation Sodium Carbon Dioxide BUN Glucose POC Glucose (mg/dL) Plasma Lactic Acid [place] Calcium AST ALT Troponin I Total Protein Urine Protein Urine Glucose (UA) Urine Blood Urine WBC Urine Mucus - Diagnostic Findings Chest x-ray: image reviewed (As noted in HPI) Additional studies: CT angiogram of the chest is pending CT of the brain is negative Assessment and Plan Assessment: Impression: Ventricular fibrillation cardiac arrest, downtime 10 minutes. Acute hypoxic respiratory failure secondary to above requiring intubation and mechanical ventilation Possible anoxic brain injury/encephalopathy, will likely repeat CT of the brain in the next 24 hours and may consult neurology. History of hypertension Rule out thromboembolic disease/pulmonary embolism especially with elevated D- dimer, will arrange for CT angiogram of the chest today. Recommendation: Continue ventilatory support Nutritional support/enteral feeding Continue heparin Continue GI prophylaxis/pantoprazole Continue beta-blockers statins and aspirin CT angiogram of the chest was ordered Hemodynamic support if felt to be necessary Hold propofol today and assess mental status, if no improvement could consider neurological evaluation. Prognosis is guarded Patient is critically ill We will continue to follow Time with Patient: Greater than 30
[2025-02-08 11:29] LABS: Partial Thromboplastin Time 25.3 sec (22.0-30.0); Prothrombin Time 11.4 sec (10.0-12.5)
--- NOTE | 2025-02-08 11:45 | OP ---
OPERATIVE REPORT DATE OF SERVICE : PROCEDURE PERFORMED: Placement of a right radial arterial line. PREOPERATIVE DIAGNOSES: Acute hypoxic respiratory failure and cardiac arrest. POSTOPERATIVE DIAGNOSES: Acute hypoxic respiratory failure and cardiac arrest. ANESTHESIA USED: None deployed. DESCRIPTION OF PROCEDURE: The right wrist was prepared in a sterile fashion and drapes were applied. The right radial artery was palpated, easily cannulated and a guidewire was placed. A Cook's catheter was inserted over the guidewire, and the guidewire was removed. Good blood flow, good waveform, no complications. Line was secured using 3-0 silk sutures. MMODL / IJN: [id number] /
[2025-02-08 11:59] LABS: Glucose,Whole Blood 102 mg/dL (70-110)
[2025-02-08 13:19] LABS: ABG Base Excess -0.6 mmol/L; ABG HCO3 24 mmol/L (21-25); ABG Oxygen Saturation 98.5 % (94-97); ABG PCO2 37 mmHg (35-45); ABG PH 7.41 (7.35-7.45); ABG PO2 100 mmHg (83-108); ABG TCO2 25 mmol/L (19-24)
[2025-02-08 13:26] LABS: Allen Test Performed? No
[2025-02-08 14:23] LABS: ABG Base Excess -0.4 mmol/L; ABG HCO3 23 mmol/L (21-25); ABG PCO2 35 mmHg (35-45); ABG PH 7.44 (7.35-7.45); ABG PO2 78 mmHg (83-108); ABG TCO2 25 mmol/L (19-24)
[2025-02-08 14:24] LABS: Allen Test Performed? No
--- NOTE | 2025-02-08 15:27 | CA ---
Transthoracic Echo Report Name: Steven Alba Age: 64 Gender: M : 1960 Exam Date: 02/08/2025 09:09 Exam Location: [facility] Ht (in): 73 Wt (lb): 242 Ordering Physician: Maria Elena Casillas Attending/Referring Phys: Jazz Singer Justina Ny RDCS Procedure CPT: Indications: Cardiac Arrest Cardiac Hx: Technical Quality: Fair Contrast 1: Definity Total Dose (mL): 2 Contrast 2: Total Dose (mL): MEASUREMENTS (Male / Female) Normal Values 2D ECHO LV Diastolic Diameter PLAX 5.3 cm 4.2 - 5.9 / 3.9 - 5.3 cm LV Systolic Diameter PLAX 3.6 cm IVS Diastolic Thickness 1.1 cm 0.6 - 1.0 / 0.6 - 0.9 cm LVPW Diastolic Thickness 1.1 cm 0.6 - 1.0 / 0.6 - 0.9 cm LV Relative Wall Thickness 0.4 RV Internal Dim ED PLAX 3.4 cm LVOT Diameter 2.0 cm LV Diastolic Volume MOD BP 146.9 cm??? 67 - 155 / 56 - 104 cm??? LV Systolic Volume MOD BP 85.7 cm??? 22 - 58 / 19 - 49 cm??? LV Ejection Fraction MOD BP 41.7 % >= 55 % LV Cardiac Index MOD BP 1856.0 cm???/min???m??? LV Diastolic Volume MOD 4C 146.6 cm??? LV Systolic Volume MOD 4C 93.1 cm??? LV Ejection Fraction MOD 4C 36.5 % LV Cardiac Index MOD 4C 1623.6 cm???/min???m??? LV Diastolic Length 4C 8.9 cm LV Systolic Length 4C 8.0 cm LV Diastolic Volume MOD 2C 144.3 cm??? LV Systolic Volume MOD 2C 80.5 cm??? LV Ejection Fraction MOD 2C 44.2 % LV Cardiac Index MOD 2C 1934.2 cm???/min???m??? LV Diastolic Length 2C 8.6 cm LV Systolic Length 2C 7.9 cm LA Volume 58.5 cm??? 18 - 58 / 22 - 52 cm??? LA Volume Index 24.3 cm???/m??? 16 - 28 cm???/m??? DOPPLER LVOT Peak Velocity 102.2 cm/s LVOT Peak Gradient 4.2 mmHg LVOT Velocity Time Integral 20.7 cm LVOT Stroke Volume 67.9 cm??? LVOT Stroke Volume Index 29.1 ml/m??? LVOT Cardiac Index 2058.3 cm???/min???m??? MV Area PHT 3.1 cm??? Mitral E Point Velocity 48.3 cm/s Mitral A Point Velocity 60.7 cm/s Mitral E to A Ratio 0.8 MV Deceleration Time 246.6 ms MV E' Velocity 4.9 cm/s Mitral E to MV E' Ratio 9.9 FINDINGS Left Ventricle Left ventricular cavity size normal. Left ventricular ejection fraction is estimated at 35-40%. Distal anterior and septal as well as apical severe hypokinesis to akinesis. Right Ventricle Normal right ventricular size. Hypokinetic right ventricular free wall. TAPSE 16 mm. Right Atrium Normal right atrial size. Left Atrium Normal left atrial size. Mitral Valve Structurally normal mitral valve. Trace mitral regurgitation. Aortic Valve No aortic valve stenosis or regurgitation. Tricuspid Valve Structurally normal tricuspid valve. Mild tricuspid regurgitation. Pulmonic Valve Pulmonic valve not well visualized. Pericardium No pericardial effusion. Aorta Normal size aortic root and proximal ascending aorta. CONCLUSIONS Technically difficult study. Definity ECHO contrast used for improved visualization of the endocardial borders (inadequate visualization of two or more contiguous segments). Moderately impaired left ventricular systolic function with segmental wall motion abnormality consistent with CAD Limited Doppler study with mild tricuspid and trace mitral regurgitation Previewed by: Dr. Giana Persaud MD (Electronically Signed) Final Date: 08 February 2025 15:27
--- NOTE | 2025-02-08 15:39 | CT ---
EXAMINATION TYPE: CT angio chest DATE OF EXAM: 02/08/2025 3:32 PM COMPARISON: Multiple prior chest radiograph, most recently dated 02/08/2025. CLINICAL INDICATION: Male, 64 years old with history of Elevated d dimer; Elevated D-dimer. TECHNIQUE/CONTRAST: CTA scan of the thorax is performed with IV Contrast, patient injected with 80 ml mL of Isovue 370, M IP images are created and reviewed these are created on a separate workstation.. CT DLP: 930.6 mGycm, Automated exposure control for dose reduction was used. FINDINGS: Pulmonary Artery: Suboptimal timing of contrast bolus and streak/motion artifact limits evaluation fo r distal segmental and subsegmental pulmonary artery branches. Within these limitations, there Is no evidence for a filling defect within the pulmonary vasculature to suggest acute pulmonary embolism. The pulmonary artery is of normal size. Lungs/Pleura: Consolidative changes in the lower lobes and trace right pleural effusion. No pneumotho rax. No suspicious pulmonary mass. Airway: Large airways are patent. Heart: Cardiomegaly. Coronary artery calcifications. Vasculature: No evidence of aortic aneurysm. Mediastinum: No gross evidence of adenopathy. Musculoskeletal: No acute osseous abnormalities Soft Tissues/lymph nodes: Unremarkable. Lower neck: No significant findings. Upper Abdomen: No significant acute findings. Partial visualized hypodense liver lesions. IMPRESSION: 1. No evidence of central or proximal segmental acute pulmonary embolism. 2. Cardiomegaly and coronary artery calcifications. 3. Dependent consolidative changes in the lower lobes suggestive of pneumonia in the appropriate cli nical setting. [facility], , 02/08/2025 3:37 PM
--- NOTE | 2025-02-08 15:43 | CT ---
EXAMINATION TYPE: CT brain wo con DATE OF EXAM: 02/08/2025 3:32 PM COMPARISON: Previous study of 02/07/2025.. CLINICAL INDICATION: Male, 64 years old with history of change in mental status, Change in mental sta tus. TECHNIQUE: Brain: Axial CT images of the brain were obtained with coronal and sagittal reformats created and rev iewed. Contrast used: None. Oral contrast used: None. CT DLP: 1225 mGycm, Automated exposure control for dose reduction was used. FINDINGS: Brain: Extra-axial spaces: No abnormal extra-axial fluid collections. Ventricular system: Within normal limits Cerebral parenchyma: No acute intraparenchymal hemorrhage or mass effect. The bailey-white junction is well differentiated. Scattered hypoattenuating areas are seen within the white matter. Cerebellum: Unremarkable. Mass effect: No evidence of midline shift. Intracranial vasculature: unremarkable Soft tissues: Normal. Calvarium/osseous structures: No depressed skull fracture. Paranasal sinuses and mastoid air cells: Mucosal thickening of the right maxillary sinus. Visualized orbits: Orbital contents are intact. IMPRESSION: No acute intracranial process. [facility], , 02/08/2025 3:41 PM
[2025-02-08 17:25] LABS: Glucose,Whole Blood 120 mg/dL (70-110)
[2025-02-08] MEDS: PIPERACILLIN-TAZOBACTAM 3.375 GM in SODIUM CHLORIDE 0.9% 100 ML IVPB SCH (18:10)
[2025-02-08] MEDS ORDERED: IPRATROPIUM-ALBUTEROL 3 ML NEB INHALATION PRN (21:08)
[2025-02-09 04:04] LABS: Basophils # (A) 0.02 10*3/uL (0.00-0.10); Basophils % (A) 0.2 %; Eosinophils # (A) 0.01 10*3/uL (0.04-0.35); Eosinophils % (A) 0.1 %; HCT 34.8 % (39.6-50.0); Lymphocytes # (A) 1.66 10*3/uL (0.90-5.00); Lymphocytes % (A) 15.3 %; MCH 30.9 pg (27.0-32.0); MCHC 34.5 g/dL (32.0-37.0); MCV 89.7 fL (80.0-97.0); Mean Platelet Volume 10.2 fL (9.5-12.2); Monocytes # (A) 0.72 10*3/uL (0.20-1.00); Monocytes % (A) 6.6 %; Neutrophils # (A) 8.43 10*3/uL (1.80-7.70); Neutrophils % (A) 77.4 %; Platelet Count 155 10*3/uL (140-440); RBC 3.88 10*6/uL (4.40-5.60); RDW 12.4 % (11.5-14.5); WBC 10.88 10*3/uL (4.50-10.00)
[2025-02-09 04:10] LABS: INR 1.1 (<1.2); Prothrombin Time 11.9 sec (10.0-12.5)
[2025-02-09 04:58] LABS: African American GFR (CKD) >90 (>60 ml/min/1.73 sqM); Anion Gap 6 mmol/L; Blood Urea Nitrogen 13 mg/dL (9-20); Calcium 8.1 mg/dL (8.4-10.2); Carbon Dioxide 24 mmol/L (22-30); Chloride 107 mmol/L (98-107); Glucose 120 mg/dL (74-99); Non-African American GFR(CKD) >90 (>60 ml/min/1.73 sqM); Potassium 3.8 mmol/L (3.5-5.1); Sodium 137 mmol/L (137-145)
[2025-02-09] MEDS: POTASSIUM CHLORIDE 20 MEQ in WATER FOR INJECTION 1 100ML.BAG IVPB ONE (05:24)
[2025-02-09] MEDS: IPRATROPIUM-ALBUTEROL 3 ML NEB INHALATION SCH (07:31)
--- NOTE | 2025-02-09 08:00 | XR ---
EXAMINATION TYPE: XR chest 1V portable DATE OF EXAM: 02/09/2025 4:52 AM COMPARISON: 02/08/2025 CLINICAL INDICATION: Male, 64 years old with history of Tube placement, TECHNIQUE: XR chest 1V portable view(s) obtained. FINDINGS: The heart size is enlarged. The pulmonary vasculature is normal. Mild left lower lobe infiltrate is present. Mild right basilar infiltrate is present. Endotracheal tube and nasogastric tube removed. Central venous catheter right is unchanged in positio n IMPRESSION: 1. Bibasilar infiltrates. Correlate for atelectasis or pneumonia. 2. Right central venous catheter is directed somewhat laterally may be in the subclavian vein. [facility], , 02/09/2025 7:58 AM
[2025-02-09] MEDS ORDERED: ALPRAZolam 0.5 MG TAB PO PRN (09:14)
[2025-02-09] MEDS ORDERED: NITROGLYCERIN SL TABS 0.4 MG TAB SUBLINGUAL PRN (09:14)
[2025-02-09] MEDS: FUROSEMIDE 10 MG/ML 4 ML VIAL IV STA (09:14)
[2025-02-09] MEDS ORDERED: ALPRAZolam 0.25 MG TAB PO PRN (09:14)
--- NOTE | 2025-02-09 09:20 | P.PN ---
Subjective Progress Note Date: 02/09/25 PROGRESS NOTE The patient is a 64-year-old male, [place] in origin who presented to the emergency room [place] the gas station. CPR was started, EMS found him in ventricular fibrillation. He received 3 rounds of defibrillation and epi. His downtime was 10 minutes prior to buddhism of rhythm. Brought into the emergency room, was intubated. His EKG showed no acute ST segment elevation. He has been in sinus mechanism since admission. He continues to be on IV amiodarone. He is not responsive. He is on no vasopressors. His urinary output is stable. No other history is available. His chest x-ray showed no acute infiltrate. His initial troponin was 0.014. February 09: The patient is extubated, awake and alert, following commands. His brother is in the room giving history since the patient does not speak a lot of Sinhala. Apparently he had a cardiac catheterization 5 years ago and mild CAD was noted. He has been doing well overall without any overt signs of angina pectoris or congestive heart failure. He denies any dizziness or palpitations at home and n o prior syncopal episode. He was not told that he has ischemic cardiomyopathy. He continues to be in sinus mechanism with no further ventricular tachycardia. His blood pressure stable. He had an echocardiogram that showed an ejection fraction of 35 to 40% with distal anterior septal and apical severe hypokinesis to akinesis. The patient does not carry a history of prior myocardial infarction. Medications: IV heparin, metoprolol 25 mg twice a day, aspirin once a day, atorvastatin 40 mg daily. He was on IV amiodarone. PHYSICAL EXAMINATION: Blood pressure 120/70 heart rate 60 LUNGS: Clear to auscultation HEART: Regular rate and rhythm, S1, S2. No S3. Systolic ejection murmur ABDOMEN: Soft, nontender, no organomegaly EXTREMETIES: No edema LAB: Hemoglobin 12.0, potassium 3.8, BUN 13, creatinine 0.87. His troponin was 2.3. IMPRESSION: 1. Cardiac arrest with ventricular fibrillation requiring CPR and cardioversion 2. Ischemic cardiomyopathy of unknown duration 3. Prior history of hypertension 4. Prior history of hyperlipidemia PLAN: 1. Start lisinopril 2. Continue beta-kane, aspirin and heparin 3. Add oral amiodarone for now 4. Proceed with coronary angiography, risks and the complications were discussed with the patient and his brother. They are in full understanding and agreement. Depending on the results of the cardiac catheterization the decision will be made regarding the need to undergo EP study or ICD implantation. 5. Depending on his progress further recommendations will be made Objective - Vital Signs Vital signs: Vital Signs Temp 98.0 F 02/09/25 04:00 Pulse 70 02/09/25 07:43 Resp 17 02/09/25 06:00 BP 120/71 02/09/25 06:00 Pulse Ox 97 02/09/25 06:00 FiO2 40 02/08/25 12:30 Intake & Output 02/08/25 02/09/25 02/09/25 18:59 06:59 18:59 Intake Total 4141.572 3200.04 333.34 Output Total 1190 1200 350 Balance 675.027 200.04 -16.66 Weight 109.8 kg 109 kg Intake: IV 1400.04 1400.04 333.34 Amiodarone 450 mg In 200.04 200.04 33.34 Dextrose 5% in Water 250 ml @ 0.5 MG/MIN 16.667 mls/hr IV .Q15H [place] Rx#: [id number] Sodium Chloride 0.9% 1, 1200 1200 300 000 ml @ 50 mls/hr IV . Q20H [place] Rx#:[id number] Intake, IV Titration 464.987 Amount Amiodarone 450 mg In 234.171 Dextrose 5% in Water 250 ml @ 0.5 MG/MIN 16.667 mls/hr IV .Q15H [place] Rx#: [id number] propofoL 1,000 mg In 230.816 Empty Bag 1 bag @ 15 MCG/ KG/MIN 14.288 mls/hr IV . Q7H [place] Rx#:[id number] Output: Urine 1190 1200 350 Other: Voiding Method Indwelling Catheter Indwelling Catheter ABP, PAP, CO, CI - Last Documented Arterial Blood Pressure 127/61 - Labs CBC & Chem 7: 02/09/25 03:50 02/09/25 03:50 Labs: Abnormal Lab Results - Last 24 Hours (Table) 02/08/25 02/08/25 02/08/25 Range/Units 08:47 08:47 10:10 WBC 11.72 H (4.50-10.00) 10*3/uL RBC 4.13 L (4.40-5.60) 10*6/uL Hgb 12.8 L (13.0-17.0) g/dL Hct 36.7 L (39.6-50.0) % Neutrophils # 9.47 H (1.80-7.70) 10*3/uL Eosinophils # 0.03 L (0.04-0.35) 10*3/uL APTT (22.0-30.0) sec D-Dimer 6.82 H (<0.60) mg/L FEU ABG pO2 (83-108) mmHg ABG Total CO2 (19-24) mmol/L ABG O2 Saturation (94-97) % Glucose (74-99) mg/dL POC Glucose (mg/dL) (70-110) mg/dL Calcium (8.4-10.2) mg/dL Troponin I 2.310 H* (0.000-0.034) ng/mL 02/08/25 02/08/25 02/08/25 Range/Units 13:17 14:08 15:51 WBC (4.50-10.00) 10*3/uL RBC (4.40-5.60) 10*6/uL Hgb (13.0-17.0) g/dL Hct (39.6-50.0) % Neutrophils # (1.80-7.70) 10*3/uL Eosinophils # (0.04-0.35) 10*3/uL APTT 46.1 H (22.0-30.0) sec D-Dimer (<0.60) mg/L FEU ABG pO2 78 L (83-108) mmHg ABG Total CO2 25 H 25 H (19-24) mmol/L ABG O2 Saturation 98.5 H (94-97) % Glucose (74-99) mg/dL POC Glucose (mg/dL) (70-110) mg/dL Calcium (8.4-10.2) mg/dL Troponin I (0.000-0.034) ng/mL 02/08/25 02/09/25 02/09/25 Range/Units 17:23 03:50 03:50 WBC 10.88 H (4.50-10.00) 10*3/uL RBC 3.88 L (4.40-5.60) 10*6/uL Hgb 12.0 L (13.0-17.0) g/dL Hct 34.8 L (39.6-50.0) % Neutrophils # 8.43 H (1.80-7.70) 10*3/uL Eosinophils # 0.01 L (0.04-0.35) 10*3/uL APTT (22.0-30.0) sec D-Dimer (<0.60) mg/L FEU ABG pO2 (83-108) mmHg ABG Total CO2 (19-24) mmol/L ABG O2 Saturation (94-97) % Glucose 120 H (74-99) mg/dL POC Glucose (mg/dL) 120 H (70-110) mg/dL Calcium 8.1 L (8.4-10.2) mg/dL Troponin I (0.000-0.034) ng/mL 02/09/25 Range/Units 08:53 WBC (4.50-10.00) 10*3/uL RBC (4.40-5.60) 10*6/uL Hgb (13.0-17.0) g/dL Hct (39.6-50.0) % Neutrophils # (1.80-7.70) 10*3/uL Eosinophils # (0.04-0.35) 10*3/uL APTT 49.9 H (22.0-30.0) sec D-Dimer (<0.60) mg/L FEU ABG pO2 (83-108) mmHg ABG Total CO2 (19-24) mmol/L ABG O2 Saturation (94-97) % Glucose (74-99) mg/dL POC Glucose (mg/dL) (70-110) mg/dL Calcium (8.4-10.2) mg/dL Troponin I (0.000-0.034) ng/mL
--- NOTE | 2025-02-09 10:26 | P.PN ---
Subjective Progress Note Date: 02/09/25 Principal diagnosis: V-fib cardiac arrest This is a 64-year-old white male from [facility], visiting family in [facility], patient developed an episode of unresponsiveness while at the gas station. CPR was started, EMS arrived and the patient was in a ventricular fibrillation. Patient received 3 rounds of defibrillation and epinephrine by EMS, and his downtime was roughly about 10 minutes. Patient was brought into the ER, intubated, EKG showed no evidence of acute ST segment elevation, his initial troponin was normal, patient was in sinus rhythm, placed empirically on amiodarone, kept on mechanical ventilation and admitted to the ICU. Did not require any pressors since admission, patient seems to be hemodynamically stable, urine output is excellent, patient seems to be perfusing well, CT of the brain on admission was negative for acute CVA or bleed, chest x-ray showed no evidence of infiltrates and no evidence of pulmonary edema. Follow-up troponins and follow-up D-dimer were elevated, hence the patient will have a CT angiogram of the chest, in the meantime he was placed on heparin as per cardiology. After evaluating the patient, I went ahead and placed a right radial arterial line for hemodynamic monitoring and for frequent blood draws, patient will be going down for CT angiogram of the chest to rule out pulmonary embolism. In the meantime we will continue heparin as per protocol. Neurologically could not assess the patient while on propofol, hence I have recommended holding propofol today and assess mental status off propofol if possible. Patient was seen today on 02/09/2025, patient was extubated yesterday, tolerated the extubation well. His initial presentation was a presentation of ventricular fibrillation cardiac arrest. Patient was found to have abnormal echocardiogram with ejection fraction of 35 to 40% he remains on amiodarone at 0.5 mg/h, remains on heparin drip, and his CT of the chest showed no evidence of pulmonary embolism. CT of the chest raised the possibility of aspiration pneumonia and interstitial edema has the patient received Zosyn and received diuretics. He is supposed to undergo cardiac catheterization tomorrow by Dr. Persaud. In the meantime the patient to remain in the ICU will remain on 4 L nasal cannula. WBC count today is 10.8 hemoglobin is 12 PTT is 49.9 electrolytes are normal with normal renal profile. His brother is at bedside, translated to him the treatment plan and the fact that he will undergo cardiac catheterization likely tomorrow. Patient does not speak any German. 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 Objective - Vital Signs Vital signs: Vital Signs Temp 98.9 F 02/09/25 08:00 Pulse 93 02/09/25 09:00 Resp 28 H 02/09/25 09:00 BP 119/69 02/09/25 09:00 Pulse Ox 95 02/09/25 09:00 FiO2 40 02/08/25 12:30 Intake & Output 02/08/25 02/09/25 02/09/25 18:59 06:59 18:59 Intake Total 0531.822 4037.04 333.34 Output Total 1190 1200 350 Balance 675.027 200.04 -16.66 Weight 109.8 kg 109 kg Intake: IV 1400.04 1400.04 333.34 Amiodarone 450 mg In 200.04 200.04 33.34 Dextrose 5% in Water 250 ml @ 0.5 MG/MIN 16.667 mls/hr IV .Q15H [place] Rx#: [id number] Sodium Chloride 0.9% 1, 1200 1200 300 000 ml @ 50 mls/hr IV . Q20H [place] Rx#:[id number] Intake, IV Titration 464.987 Amount Amiodarone 450 mg In 234.171 Dextrose 5% in Water 250 ml @ 0.5 MG/MIN 16.667 mls/hr IV .Q15H [place] Rx#: [id number] propofoL 1,000 mg In 230.816 Empty Bag 1 bag @ 15 MCG/ KG/MIN 14.288 mls/hr IV . Q7H [place] Rx#:[id number] Output: Urine 1190 1200 350 Other: Voiding Method Indwelling Catheter Indwelling Catheter ABP, PAP, CO, CI - Last Documented Arterial Blood Pressure 145/66 - Exam 64-year-old male, on 4 L nasal cannula, not in distress Head: Normocephalic. Atraumatic. Eyes: PERRLA, EOMI, nonicteric. Neck: Good carotid upstroke, no bruit, no jugular venous distention. Lungs: Symmetrical chest expansion, good breath sound bilaterally no rhonchi no wheezes Heart: Regular rate and rhythm, S1-S2, no S3, no rub. No murmur. Abdomen: Soft , nontender, no rebound, positive bowel sounds no organomegaly. Extremities: No edema, intact distal pulses. Neurologic: Alert oriented x 3 no gross focal deficit Psychiatric: Normal mood, affect and no mental status examination. Skin: No rashes. - Labs CBC & Chem 7: 02/09/25 03:50 02/09/25 03:50 Labs: Abnormal Lab Results - Last 24 Hours (Table) 02/08/25 02/08/25 02/08/25 Range/Units 13:17 14:08 15:51 WBC (4.50-10.00) 10*3/uL RBC (4.40-5.60) 10*6/uL Hgb (13.0-17.0) g/dL Hct (39.6-50.0) % Neutrophils # (1.80-7.70) 10*3/uL Eosinophils # (0.04-0.35) 10*3/uL APTT 46.1 H (22.0-30.0) sec ABG pO2 78 L (83-108) mmHg ABG Total CO2 25 H 25 H (19-24) mmol/L ABG O2 Saturation 98.5 H (94-97) % Glucose (74-99) mg/dL POC Glucose (mg/dL) (70-110) mg/dL Calcium (8.4-10.2) mg/dL 02/08/25 02/09/25 02/09/25 Range/Units 17:23 03:50 03:50 WBC 10.88 H (4.50-10.00) 10*3/uL RBC 3.88 L (4.40-5.60) 10*6/uL Hgb 12.0 L (13.0-17.0) g/dL Hct 34.8 L (39.6-50.0) % Neutrophils # 8.43 H (1.80-7.70) 10*3/uL Eosinophils # 0.01 L (0.04-0.35) 10*3/uL APTT (22.0-30.0) sec ABG pO2 (83-108) mmHg ABG Total CO2 (19-24) mmol/L ABG O2 Saturation (94-97) % Glucose 120 H (74-99) mg/dL POC Glucose (mg/dL) 120 H (70-110) mg/dL Calcium 8.1 L (8.4-10.2) mg/dL 02/09/25 Range/Units 08:53 WBC (4.50-10.00) 10*3/uL RBC (4.40-5.60) 10*6/uL Hgb (13.0-17.0) g/dL Hct (39.6-50.0) % Neutrophils # (1.80-7.70) 10*3/uL Eosinophils # (0.04-0.35) 10*3/uL APTT 49.9 H (22.0-30.0) sec ABG pO2 (83-108) mmHg ABG Total CO2 (19-24) mmol/L ABG O2 Saturation (94-97) % Glucose (74-99) mg/dL POC Glucose (mg/dL) (70-110) mg/dL Calcium (8.4-10.2) mg/dL Assessment and Plan Assessment: Impression: Ventricular fibrillation cardiac arrest, downtime 10 minutes. Acute hypoxic respiratory failure secondary to above requiring intubation and mechanical ventilation, patient was extubated on 02/09/2024, tolerated extubation well so far. No evidence of anoxic brain injury based on his clinical's findings and based on brain CT x 2. History of hypertension Rule out thromboembolic disease/pulmonary embolism especially with elevated D- dimer, will arrange for CT angiogram of the chest today. Possible aspiration pneumonia based on CT of the chest, Acute systolic congestive heart failure Recommendation: Continue to monitor in the ICU Continue oxygen and titrate accordingly Continue antibiotics/Zosyn Intermittently gently diurese Continue heparin Continue GI prophylaxis/pantoprazole Continue beta-blockers statins and aspirin Reviewed his CT angiogram of the chest Discussed his condition with his brother and himself at bedside and with car diology We will continue to follow Time with Patient: Greater than 30
[2025-02-09] MEDS: AMIODARONE 200 MG TAB PO SCH (10:47)
--- NOTE | 2025-02-09 11:43 | P.PN ---
Subjective Patient is a 64-year-old male admitted after cardiopulmonary resuscitation. Patient had ventricular fibrillation received 3 rounds of defibrillation and epinephrine and downtime was 10 minutes. Patient does have drains intact brainstem function patient is intubated and still sedated patient is on IV amiodarone drip cardiology evaluated the patient patient has elevated troponin which was a second 1 about 2.4. First troponin was negative. Patient also has elevated D-dimer because of which patient will undergo CT angio of the chest to rule out any pulmonary embolism that may have contributed to his cardiopulmonary arrest patient had a CT of the head and neck which did not show any significant abnormality chest x-ray showed appropriate placement of endotracheal tube cardiomegaly without any other significant abnormalities. Patient does have intact brainstem function patient is breathing over the ventilator does have pupillary reflexes. Patient although is on muscle relaxants as he is intubated. Patient is not on any pressor support patient is on IV heparin at this time. 02/09/2025 Patient extubated on nasal cannula oxygen clinically doing well patient had a CT of the chest which did not show any pulm embolism but did show pneumonia in the right lower lung min and patient also has pulmonary edema. Patient had a decreased ejection of 30 to 35% on the echocardiogram concern for ischemic cardiomyopathy and coronary artery disease with acute ME. Cardiology is recommending cardiac catheterization. REVIEW OF SYSTEMS: All other systems are negative except those mentioned in the HPI PHYSICAL EXAMINATION: GENERAL: The patient is alert and oriented x3, not in any acute distress. Well developed, well nourished. HEENT: Pupils are round and equally reacting to light. EOMI. No scleral icterus. No conjunctival pallor. Normocephalic, atraumatic. No pharyngeal erythema. No thyromegaly. CARDIOVASCULAR: S1 and S2 present. No murmurs, rubs, or gallops. PULMONARY: Chest is clear to auscultation, no wheezing or crackles. ABDOMEN: Soft, nontender, nondistended, normoactive bowel sounds. No palpable organomegaly. MUSCULOSKELETAL: No joint swelling or deformity. EXTREMITIES: No cyanosis, clubbing, or pedal edema. NEUROLOGICAL: Gross neurological examination did not reveal any focal deficits. SKIN: No rashes. Assessment and plan -Cardiorespiratory arrest status post CPR secondary to ventricular fibrillation for which patient is on amiodarone -Possible acute non-ST elevation myocardial infarction patient will need cardiac catheterization patient has decreased ejection fraction may have ischemic cardiomyopathy - Congestive heart failure acute systolic dysfunction from an acute ME, patient is in acute exacerbation patient is receiving IV Lasix at this time --Right lower lobe pneumonia for which patient was started on antibiotics. - V. tach/V-fib for which patient is on amiodarone secondary to acute ME - Elevated D-dimer will rule out pulmonary embolism patient will undergo CT angio of the chest - Hypertension - Hyperlipidemia - Benign prostatic hypertrophy - For above-mentioned chronic chronic medical problems patient will be on appropriate home medications Objective - Vital Signs Vital signs: Vital Signs Temp 98.9 F 02/09/25 08:00 Pulse 70 02/09/25 11:21 Resp 18 02/09/25 10:00 BP 136/76 02/09/25 10:00 Pulse Ox 95 02/09/25 10:00 FiO2 40 02/08/25 12:30 Intake & Output 02/08/25 02/09/25 02/09/25 18:59 06:59 18:59 Intake Total 5810.116 5053.04 731.365 Output Total 1190 1200 1350 Balance 675.027 200.04 -618.635 Weight 109.8 kg 109 kg Intake: IV 1400.04 1400.04 483.34 Amiodarone 450 mg In 200.04 200.04 33.34 Dextrose 5% in Water 250 ml @ 0.5 MG/MIN 16.667 mls/hr IV .Q15H [place] Rx#: [id number] Piperacillin-Tazobactam 3 100 .375 gm In Sodium Chloride 0.9% 100 ml @ 25 mls/hr IVPB Q8HR [place] Rx# :[id number] Sodium Chloride 0.9% 1, 1200 1200 350 000 ml @ 50 mls/hr IV . Q20H [place] Rx#:[id number] Intake, IV Titration 464.987 248.025 Amount Amiodarone 450 mg In 234.171 Dextrose 5% in Water 250 ml @ 0.5 MG/MIN 16.667 mls/hr IV .Q15H [place] Rx#: [id number] Heparin Sod,Pork in 0.45% 248.025 NaCl 25,000 unit In 0.45 % NaCl 1 250ml.bag @ 9. 108 UNITS/KG/HR 10.001 mls/hr IV .Q24H [place] Rx#: [id number] propofoL 1,000 mg In 230.816 Empty Bag 1 bag @ 15 MCG/ KG/MIN 14.288 mls/hr IV . Q7H [place] Rx#:[id number] Output: Urine 1190 1200 1350 Other: Voiding Method Indwelling Catheter Indwelling Catheter ABP, PAP, CO, CI - Last Documented Arterial Blood Pressure 144/73 - Labs CBC & Chem 7: 02/09/25 03:50 02/09/25 03:50 Labs: Abnormal Lab Results - Last 24 Hours (Table) 02/08/25 02/08/25 02/08/25 Range/Units 13:17 14:08 15:51 WBC (4.50-10.00) 10*3/uL RBC (4.40-5.60) 10*6/uL Hgb (13.0-17.0) g/dL Hct (39.6-50.0) % Neutrophils # (1.80-7.70) 10*3/uL Eosinophils # (0.04-0.35) 10*3/uL APTT 46.1 H (22.0-30.0) sec ABG pO2 78 L (83-108) mmHg ABG Total CO2 25 H 25 H (19-24) mmol/L ABG O2 Saturation 98.5 H (94-97) % Glucose (74-99) mg/dL POC Glucose (mg/dL) (70-110) mg/dL Calcium (8.4-10.2) mg/dL 02/08/25 02/09/25 02/09/25 Range/Units 17:23 03:50 03:50 WBC 10.88 H (4.50-10.00) 10*3/uL RBC 3.88 L (4.40-5.60) 10*6/uL Hgb 12.0 L (13.0-17.0) g/dL Hct 34.8 L (39.6-50.0) % Neutrophils # 8.43 H (1.80-7.70) 10*3/uL Eosinophils # 0.01 L (0.04-0.35) 10*3/uL APTT (22.0-30.0) sec ABG pO2 (83-108) mmHg ABG Total CO2 (19-24) mmol/L ABG O2 Saturation (94-97) % Glucose 120 H (74-99) mg/dL POC Glucose (mg/dL) 120 H (70-110) mg/dL Calcium 8.1 L (8.4-10.2) mg/dL 02/09/25 Range/Units 08:53 WBC (4.50-10.00) 10*3/uL RBC (4.40-5.60) 10*6/uL Hgb (13.0-17.0) g/dL Hct (39.6-50.0) % Neutrophils # (1.80-7.70) 10*3/uL Eosinophils # (0.04-0.35) 10*3/uL APTT 49.9 H (22.0-30.0) sec ABG pO2 (83-108) mmHg ABG Total CO2 (19-24) mmol/L ABG O2 Saturation (94-97) % Glucose (74-99) mg/dL POC Glucose (mg/dL) (70-110) mg/dL Calcium (8.4-10.2) mg/dL
[2025-02-09 19:20] LABS: HCT 33.4 % (39.6-50.0); HGB 11.5 g/dL (13.0-17.0); MCH 30.7 pg (27.0-32.0); MCHC 34.4 g/dL (32.0-37.0); MCV 89.1 fL (80.0-97.0); Mean Platelet Volume 10.3 fL (9.5-12.2); Platelet Count 162 10*3/uL (140-440); RBC 3.75 10*6/uL (4.40-5.60); RDW 12.2 % (11.5-14.5); WBC 8.88 10*3/uL (4.50-10.00)
[2025-02-09] MEDS: POTASSIUM CHLORIDE ER 20 MEQ TAB.ER PO SCH (20:15)
[2025-02-10 05:41] LABS: HCT 33.4 % (39.6-50.0); HGB 11.6 g/dL (13.0-17.0); MCH 30.8 pg (27.0-32.0); MCHC 34.7 g/dL (32.0-37.0); MCV 88.6 fL (80.0-97.0); Mean Platelet Volume 10.3 fL (9.5-12.2); Platelet Count 169 10*3/uL (140-440); RBC 3.77 10*6/uL (4.40-5.60); RDW 12.3 % (11.5-14.5); WBC 8.86 10*3/uL (4.50-10.00)
[2025-02-10 06:09] LABS: African American GFR (CKD) >90 (>60 ml/min/1.73 sqM); Anion Gap 6 mmol/L; Blood Urea Nitrogen 15 mg/dL (9-20); Calcium 8.2 mg/dL (8.4-10.2); Carbon Dioxide 25 mmol/L (22-30); Chloride 109 mmol/L (98-107); Glucose 112 mg/dL (74-99); Non-African American GFR(CKD) >90 (>60 ml/min/1.73 sqM); Potassium 3.6 mmol/L (3.5-5.1); Sodium 140 mmol/L (137-145)
[2025-02-10] MEDS: ASPIRIN 325 MG TAB PO ONE (06:44)
[2025-02-10] MEDS: POTASSIUM CHLORIDE ER 20 MEQ TAB.ER PO SCH (06:45)
[2025-02-10] MEDS: ATORVASTATIN 80 MG TAB PO ONE (06:45)
[2025-02-10] MEDS ORDERED: HEPARIN SODIUM,PORCINE (1 ML) 2,500 UNIT in SODIUM CHLORIDE 0.9% 250 ML IRRIGATION PRN (07:00)
[2025-02-10] MEDS ORDERED: HEPARIN SODIUM,PORCINE 10,000 UNIT in SODIUM CHLORIDE 0.9% 1,000 ML IRRIGATION PRN (07:00)
[2025-02-10] MEDS: IV FLUID CONTINUATION 1,000 ML IV ONE (07:35)
[2025-02-10] MEDS: LIDOCAINE 1% INJ 10MG/ML (20 ML MDV) SQ ONE (07:50)
[2025-02-10] MEDS: fentaNYL (PF) 50 MCG/1 ML VIAL IVP ONE (07:50)
[2025-02-10] MEDS: VERAPAMIL SYRINGE (5 MG/10 ML) INTRAARTER ONE (07:52)
[2025-02-10] MEDS: HEPARIN SODIUM 1,000 UN/ML (10ML VL) IVP ONE (07:58)
[2025-02-10] MEDS: CLOPIDOGREL 75 MG TAB PO ONE (08:12)
--- NOTE | 2025-02-10 08:15 | XR ---
EXAMINATION TYPE: XR chest 1V portable DATE OF EXAM: 02/10/2025 4:28 AM COMPARISON: Chest radiographs from 02/09/2025 TECHNIQUE: XR chest 1V portable Portable AP radiograph of the chest. CLINICAL INDICATION:Male, 64 years old with history of Tube placement; FINDINGS: Lungs/Pleura: No pleural effusion. Chronic elevation right hemidiaphragm. Redemonstration of right ba silar airspace opacities. No discrete pneumothorax. Pulmonary vascularity: Unremarkable. Heart/mediastinum: Cardiomediastinal silhouette is enlarged and stable. Musculoskeletal: No acute osseous pathology. Other findings: Previously seen abnormal right central venous catheter is no longer visualized. IMPRESSION: 1. Similar right basilar infiltrate. 2. Interval removal right central venous catheter. [facility], , 02/10/2025 8:13 AM
[2025-02-10] MEDS: MIDAZOLAM 2 MG/2 ML VIAL IVP ONE (08:25)
[2025-02-10] MEDS: IOPAMIDOL-370 100ML BTL INJ ONE ×3 (09:17→09:29)
[2025-02-10] MEDS ORDERED: RX INFO: IV CONTRAST WAS GIVEN 1 EACH MISC MISCELLANE PRN (09:37)
[2025-02-10] MEDS ORDERED: ZOLPIDEM 5 MG TAB PO PRN (09:37)
[2025-02-10] MEDS ORDERED: MAG HYDROX/AL HYDROX/SIMETH 30 ML CUP PO PRN (09:37)
[2025-02-10] MEDS ORDERED: ATROPINE SULFATE 0.1 MG/ML 10ML SYRINGE IV PRN (09:37)
[2025-02-10] MEDS ORDERED: NITROGLYCERIN SL TABS 0.4 MG TAB SUBLINGUAL PRN (09:37)
--- NOTE | 2025-02-10 09:49 | P.CARDCATH ---
Date of Procedure: 02/10/25 Description of Procedure: Cardiac Catheterization: The patient is a 64-year-old male, [place] in origin, visiting and presented to the hospital after cardiac arrest while at the gas station. He had ventricular fibrillation, cardioversion and CPR. He was intubated and subsequently extubated with no evidence of significant neurological damage. His EKG showed no acute changes but his echocardiogram showed anteroapical severe hypokinesis to akinesis. Recommendations were made regarding cardiac catheterization, the risks and the complications were discussed with the patient who is in full understanding and agreement. Procedure Description: Patient was brought to photo lab specialist in fasting semi-sedated state after receiving Fentanyl and Benadryl achieiving moderate conscious sedated state. Using Xylocaine Anesthesia and exchange technique the right arterial sheath was exchanged to a 6-Czech sheath was introduced in the right radial artery . Subsequently, selective coronary angiography was performed using a 5-Czech 3.5 bend Danielle catheter. Multiple views of the coronary artery including hemiaxial views were obtained. The right Danielle catheter was used to cross the aortic valve and LVEDP was calculated. PCI: After removing the catheter a 6 Czech CLS 3.5 guiding catheter was introduced. Attempt to cross the total occlusion of the proximal LAD using a 0.014 BMW J- wire and a super cross were unsuccessful, that wire was removed and a 0.014 whisper J-wire was advanced and was able to cross the lesion with the support of the microcatheter. There was inability to advance the microcatheter. The microcatheter was removed and a sapphire 1.0 x 8 mm balloon was advanced and multiple inflation up to 14 felicity were done, subsequently a 2.0 x 12 mm trek balloon was advanced and inflations at 8 felicity were done. After removing the balloon the wire was exchanged using the microcatheter 0.014 BMW J-wire. Subsequently a [place] eye IVUS was introduced and imaging was obtained and revealed diffuse disease in the proximal to mid LAD with distal lumen measuring 3.0 mm in diameter and proximal diameter 4.5 to 4.75 mm in diameter. After removing the IVUS a 3.0 x 33 mm Xience Skypoint stent was deployed at 16 felicity. After removing the balloon repeat IVUS imaging was performed and revealed under deployment proximally and a stable lesion distal to the stent. Subsequently 4.0 x 15 mm NC trek balloon was advanced and inflation in the mid and proximal segment of the stent were performed at 10 felicity. After removing the balloon a 4.5 x 12 mm Xience annamaria point stent was deployed from the ostium overlapping the proximal LAD at 16 felicity and a subsequent inflation was done in the overlap segment. Following that the balloon was removed and the wire images were obtained and revealed stable successful stenting. Following that, catheter and sheath were removed. Hemostasis was obtained with deployment of vascular band . There was no immediate complication. Patient was returned to room in stable condition. Of note, the patient received a total of 9000 units of intravenous heparin as well as intra-arterial verapamil. He received an oral loading dose of clopidogrel, his ACT was monitored. He had no EKG changes with the inflations or significant chest pain. Online communications department chair was available Findings: fluoroscopy: Calcification of the coronary arteries was noted Left main: This is a large size vessel trifurcating into LAD, ramus intermedius and left circumflex, left main has no obstructive disease LAD: This vessel is totally occluded proximally with no significant antegrade flow Left circumflex: This is a large vessel nondominant, giving rise to small obtuse marginal branch and distally giving rise to distal branch. The left circumflex has no obstructive disease RCA: This is a dominant vessel, tortuous, bifurcating distally to PDA and PLV. The right coronary artery has no obstructive disease. Collaterals to the LAD through the septal tank pumper were noted. Ramus intermedius: This is a large size vessel reaching to the apical lateral wall, the ramus intermedius has no obstructive disease Left Ventriculogram: Not performed Hemodynamics: There was no gradient across the aortic valve, LVEDP was 25-30 mmHg Conclusion: 1. Chronically occluded proximal LAD 2. Mild disease in the mid right coronary artery 3. Elevated LVEDP 4. Successful stenting of the proximal and mid LAD with reduction stenosis from 100% to less than 5% with mild plaque distal to the stent that was felt to be better treated medically, using IVUS imaging and GERA-3 flow Recommendations: The patient will continue on aspirin and clopidogrel for no interruption for 1 year in addition to aggressive coronary risks modification, maintaining LDL below 70 mg/dL. The findings and the recommendations were discussed with the patient and the family and they were in full understanding and agreement. Duration of sedation is 109 minutes.
[2025-02-10 09:58] LABS: Glucose,Whole Blood 114 mg/dL (70-110)
[2025-02-10] MEDS: SPIRONOLACTONE 25 MG TAB PO SCH (10:39)
[2025-02-10] MEDS: SODIUM CHLORIDE 0.9% 1,000 ML in EMPTY BAG 1 BAG IV SCH (10:40)
--- NOTE | 2025-02-10 11:08 | P.PN ---
Subjective Patient is a 64-year-old male admitted after cardiopulmonary resuscitation. Patient had ventricular fibrillation received 3 rounds of defibrillation and epinephrine and downtime was 10 minutes. Patient does have drains intact brainstem function patient is intubated and still sedated patient is on IV amiodarone drip cardiology evaluated the patient patient has elevated troponin which was a second 1 about 2.4. First troponin was negative. Patient also has elevated D-dimer because of which patient will undergo CT angio of the chest to rule out any pulmonary embolism that may have contributed to his cardiopulmonary arrest patient had a CT of the head and neck which did not show any significant abnormality chest x-ray showed appropriate placement of endotracheal tube cardiomegaly without any other significant abnormalities. Patient does have intact brainstem function patient is breathing over the ventilator does have pupillary reflexes. Patient although is on muscle relaxants as he is intubated. Patient is not on any pressor support patient is on IV heparin at this time. 02/09/2025 Patient extubated on nasal cannula oxygen clinically doing well patient had a CT of the chest which did not show any pulm embolism but did show pneumonia in the right lower lung min and patient also has pulmonary edema. Patient had a decreased ejection of 30 to 35% on the echocardiogram concern for ischemic cardiomyopathy and coronary artery disease with acute LA. Cardiology is recommending cardiac catheterization. 02/10/2025 Patient underwent cardiac authorization found to have chronic occlusion of LAD and had stent to stent to LAD patient has some disease in the RCA as well. Patient is otherwise clinically doing well at this time. Patient is still on 4 L of oxygen saturating at 94% REVIEW OF SYSTEMS: All other systems are negative except those mentioned in the HPI PHYSICAL EXAMINATION: GENERAL: The patient is alert and oriented x3, not in any acute distress. Well developed, well nourished. HEENT: Pupils are round and equally reacting to light. EOMI. No scleral icterus. No conjunctival pallor. Normocephalic, atraumatic. No pharyngeal erythema. No thyromegaly. CARDIOVASCULAR: S1 and S2 present. No murmurs, rubs, or gallops. PULMONARY: Chest is clear to auscultation, no wheezing or crackles. ABDOMEN: Soft, nontender, nondistended, normoactive bowel sounds. No palpable organomegaly. MUSCULOSKELETAL: No joint swelling or deformity. EXTREMITIES: No cyanosis, clubbing, or pedal edema. NEUROLOGICAL: Gross neurological examination did not reveal any focal deficits. SKIN: No rashes. Assessment and plan -Cardiorespiratory arrest status post CPR secondary to ventricular fibrillation for which patient is on amiodarone - non-ST elevation myocardial infarction patient had cardiac catheterization and stents to LAD and patient is on beta-kane and LYNNE inhibitor statin, - Congestive heart failure acute systolic dysfunction from an acute LA, patient is in acute exacerbation patient received IV Lasix. - Acute hypoxic respiratory failure secondary to possibly pulmonary edema cardiorespiratory arrest --Right lower lobe pneumonia for which patient was started on antibiotics. - V. tach/V-fib for which patient is on amiodarone secondary to acute LA - Elevated D-dimer will rule out pulmonary embolism CT angio of the chest is negative for pulmonary embolism - Hypertension - Hyperlipidemia - Benign prostatic hypertrophy - For above-mentioned chronic chronic medical problems patient will be on appropriate home medications Objective - Vital Signs Vital signs: Vital Signs Temp 98.5 F 02/10/25 10:00 Pulse 73 02/10/25 10:45 Resp 19 02/10/25 10:45 BP 122/81 02/10/25 10:45 Pulse Ox 98 02/10/25 10:45 FiO2 40 02/08/25 12:30 Intake & Output 02/09/25 02/10/25 02/10/25 18:59 06:59 18:59 Intake Total 1131.365 840 600 Output Total 3750 925 600 Balance -2618.635 -85 0 Weight 78.8 kg Intake: IV 883.34 600 450 Amiodarone 450 mg In 33.34 Dextrose 5% in Water 250 ml @ 0.5 MG/MIN 16.667 mls/hr IV .Q15H [place] Rx#: [id number] Piperacillin-Tazobactam 3 100 100 .375 gm In Sodium Chloride 0.9% 100 ml @ 25 mls/hr IVPB Q8HR [place] Rx# :[id number] Sodium Chloride 0.9% 1, 750 600 50 000 ml @ 50 mls/hr IV . Q20H [place] Rx#:[id number] Intake, IV Titration 248.025 150 Amount Heparin Sod,Pork in 0.45% 248.025 NaCl 25,000 unit In 0.45 % NaCl 1 250ml.bag @ 9. 108 UNITS/KG/HR 10.001 mls/hr IV .Q24H [place] Rx#: [id number] Sodium Chloride 0.9% 1, 150 000 ml In Empty Bag 1 bag @ 1 ML/KG/HR 78.8 mls/hr IV .[id number] [place] Rx#: [id number] Oral 240 Output: Urine 3750 925 600 Other: Voiding Method Indwelling Catheter Indwelling Catheter ABP, PAP, CO, CI - Last Documented Arterial Blood Pressure 120/63 - Labs CBC & Chem 7: 02/10/25 05:15 02/10/25 05:15 Labs: Abnormal Lab Results - Last 24 Hours (Table) 02/09/25 02/09/25 02/10/25 Range/Units 18:09 19:00 05:15 RBC 3.75 L (4.40-5.60) 10*6/uL Hgb 11.5 L (13.0-17.0) g/dL Hct 33.4 L (39.6-50.0) % APTT (22.0-30.0) sec Potassium 3.3 L (3.5-5.1) mmol/L Chloride 109 H (98-107) mmol/L Glucose 112 H (74-99) mg/dL POC Glucose (mg/dL) (70-110) mg/dL Calcium 8.2 L (8.4-10.2) mg/dL 02/10/25 02/10/25 02/10/25 Range/Units 05:15 05:15 09:56 RBC 3.77 L (4.40-5.60) 10*6/uL Hgb 11.6 L (13.0-17.0) g/dL Hct 33.4 L (39.6-50.0) % APTT 43.3 H (22.0-30.0) sec Potassium (3.5-5.1) mmol/L Chloride (98-107) mmol/L Glucose (74-99) mg/dL POC Glucose (mg/dL) 114 H (70-110) mg/dL Calcium (8.4-10.2) mg/dL Microbiology - Last 24 Hours (Table) 02/07/25 19:23 Gram Stain - Final Sputum Sputum Culture - Final 02/08/25 17:30 Blood Culture - Preliminary Blood
[2025-02-10] MEDS: FINASTERIDE 5 MG TAB PO SCH (12:11)
--- NOTE | 2025-02-10 12:17 | P.PN ---
Subjective Progress Note Date: 02/10/25 This is a 64-year-old white male from [facility], visiting family in [facility], patient developed an episode of unresponsiveness while at the gas station. CPR was started, EMS arrived and the patient was in a ventricular fibrillation. Patient received 3 rounds of defibrillation and epinephrine by EMS, and his downtime was roughly about 10 minutes. Patient was brought into the ER, intubated, EKG showed no evidence of acute ST segment elevation, his initial troponin was normal, patient was in sinus rhythm, placed empirically on amiodarone, kept on mechanical ventilation and admitted to the ICU. Did not require any pressors since admission, patient seems to be hemodynamically stable, urine output is excellent, patient seems to be perfusing well, CT of the brain on admission was negative for acute CVA or bleed, chest x-ray showed no evidence of infiltrates and no evidence of pulmonary edema. Follow-up troponins and follow-up D-dimer were elevated, hence the patient will have a CT angiogram of the chest, in the meantime he was placed on heparin as per cardiology. After evaluating the patient, I went ahead and placed a right radial arterial line for hemodynamic monitoring and for frequent blood draws, patient will be going down for CT angiogram of the chest to rule out pulmonary embolism. In the meantime we will continue heparin as per protocol. Neurologically could not assess the patient while on propofol, hence I have recommended holding propofol today and assess mental status off propofol if possible. Patient was seen today on 02/09/2025, patient was extubated yesterday, tolerated the extubation well. His initial presentation was a presentation of ventricular fibrillation cardiac arrest. Patient was found to have abnormal echocardiogram with ejection fraction of 35 to 40% he remains on amiodarone at 0.5 mg/h, remains on heparin drip, and his CT of the chest showed no evidence of pulmonary embolism. CT of the chest raised the possibility of aspiration pneumonia and interstitial edema has the patient received Zosyn and received diuretics. He is supposed to undergo cardiac catheterization tomorrow by Dr. Persaud. In the meantime the patient to remain in the ICU will remain on 4 L nasal cannula. WBC count today is 10.8 hemoglobin is 12 PTT is 49.9 electrolytes are normal with normal renal profile. His brother is at bedside, translated to him the treatment plan and the fact that he will undergo cardiac catheterization likely tomorrow. Patient does not speak any Slovak. According to the residential electrician he may have had a cardiac catheterization in [facility] over 5 years ago, results of which are unknown. The patient is seen today February 10, 2025 in follow-up in the intensive care unit. He is just back from the cardiac catheterization lab. He was found to have a chronically occluded proximal LAD and then had undergone successful stenting of the proximal and mid LAD with reduction of stenosis from 100% to less than 5%. He is currently resting in bed. Awake and alert in no acute distress. His family is at the bedside that provides most of the language interpretation. He is maintaining good O2 saturations in the upper 90s on 2 L/min per nasal cannula. He is afebrile. Hemodynamically stable. Sputum and blood cultures revealed no growth. White count 8.8. Hemoglobin 11.6. Platelets 169. Sodium 140. Potassium 3.6. Bicarb 25. BUN 15. Creatinine 0.83. Glucose 112. He is on aspirin and Plavix. Remains on amiodarone. Antibiotics in the form of Zosyn. Procalcitonin was 0.18. Today's chest x-ray shows a similar right basilar infiltrate. Objective - Vital Signs Vital signs: Vital Signs Temp 98.5 F 02/10/25 10:00 Pulse 84 02/10/25 11:47 Resp 16 02/10/25 11:00 BP 117/78 02/10/25 11:00 Pulse Ox 98 02/10/25 11:00 FiO2 40 02/08/25 12:30 Intake & Output 02/09/25 02/10/25 02/10/25 18:59 06:59 18:59 Intake Total 1131.365 840 600 Output Total 3750 925 600 Balance -2618.635 -85 0 Weight 78.8 kg Intake: IV 883.34 600 450 Amiodarone 450 mg In 33.34 Dextrose 5% in Water 250 ml @ 0.5 MG/MIN 16.667 mls/hr IV .Q15H [place] Rx#: [id number] Piperacillin-Tazobactam 3 100 100 .375 gm In Sodium Chloride 0.9% 100 ml @ 25 mls/hr IVPB Q8HR [place] Rx# :[id number] Sodium Chloride 0.9% 1, 750 600 50 000 ml @ 50 mls/hr IV . Q20H [place] Rx#:[id number] Intake, IV Titration 248.025 150 Amount Heparin Sod,Pork in 0.45% 248.025 NaCl 25,000 unit In 0.45 % NaCl 1 250ml.bag @ 9. 108 UNITS/KG/HR 10.001 mls/hr IV .Q24H [place] Rx#: [id number] Sodium Chloride 0.9% 1, 150 000 ml In Empty Bag 1 bag @ 1 ML/KG/HR 78.8 mls/hr IV .[id number] [place] Rx#: [id number] Oral 240 Output: Urine 3750 925 600 Other: Voiding Method Indwelling Catheter Indwelling Catheter ABP, PAP, CO, CI - Last Documented Arterial Blood Pressure 120/63 - Exam GENERAL EXAM: Alert, very pleasant 64-year-old open male, on 2 L nasal cannula, comfortable in no apparent distress. HEAD: Normocephalic. EYES: Normal reaction of pupils, equal size. NOSE: Clear with pink turbinates. THROAT: No erythema or exudates. NECK: No masses, no JVD. CHEST: No chest wall deformity. LUNGS: Equal air entry with no crackles, wheeze, rhonchi or dullness. CVS: S1 and S2 normal with no audible murmur, regular rhythm. ABDOMEN: No hepatosplenomegaly, normal bowel sounds, no guarding or rigidity. SPINE: No scoliosis or deformity SKIN: No rashes CENTRAL NERVOUS SYSTEM: No focal deficits, tone is normal in all 4 extremities. EXTREMITIES: Right radial vascular band in place. There is no peripheral edema. No clubbing, no cyanosis. Peripheral pulses are intact. - Labs CBC & Chem 7: 02/10/25 05:15 02/10/25 05:15 Labs: Abnormal Lab Results - Last 24 Hours (Table) 02/09/25 02/09/25 02/10/25 Range/Units 18:09 19:00 05:15 RBC 3.75 L (4.40-5.60) 10*6/uL Hgb 11.5 L (13.0-17.0) g/dL Hct 33.4 L (39.6-50.0) % APTT (22.0-30.0) sec Potassium 3.3 L (3.5-5.1) mmol/L Chloride 109 H (98-107) mmol/L Glucose 112 H (74-99) mg/dL POC Glucose (mg/dL) (70-110) mg/dL Calcium 8.2 L (8.4-10.2) mg/dL 02/10/25 02/10/25 02/10/25 Range/Units 05:15 05:15 09:56 RBC 3.77 L (4.40-5.60) 10*6/uL Hgb 11.6 L (13.0-17.0) g/dL Hct 33.4 L (39.6-50.0) % APTT 43.3 H (22.0-30.0) sec Potassium (3.5-5.1) mmol/L Chloride (98-107) mmol/L Glucose (74-99) mg/dL POC Glucose (mg/dL) 114 H (70-110) mg/dL Calcium (8.4-10.2) mg/dL Microbiology - Last 24 Hours (Table) 02/07/25 19:23 Gram Stain - Final Sputum Sputum Culture - Final 02/08/25 17:30 Blood Culture - Preliminary Blood Assessment and Plan Assessment: Ventricular fibrillation cardiac arrest, downtime 10 minutes Acute hypoxic respiratory failure secondary to above requiring intubation and mechanical ventilation, patient was extubated on 02/09/2024, tolerated extubation well Coronary artery disease with a chronically occluded proximal LAD, status post stenting to the mid and proximal LAD 02/10/2025 No evidence of anoxic brain injury based on his clinical's findings and based on brain CT x 2 History of hypertension Ruled out thromboembolic disease/pulmonary embolism Possible aspiration pneumonia based on CT of the chest Acute systolic congestive heart failure Plan: The patient was seen and evaluated Chest x-ray, labs and medications reviewed Cloth Printer Helper report reviewed Continued on aspirin and Plavix Continued on amiodarone Continue Zosyn for 1 more day Titrate down/off the FiO2 as tolerated Plan of care was discussed with the patient and his family We will continue to follow I have personally seen and examined the patient, performed the documentation and the assessment and plan as written. Number of minutes spent on the visit: 10 Dictation was produced using [employer] software. Please excuse any grammatical, word or spelling errors.
[2025-02-10 12:34] VITALS: BMI 22.8
--- NOTE | 2025-02-10 15:37 | P.PN ---
Subjective PROGRESS NOTE The patient is a 64-year-old male, [place] in origin who presented to the emergency room after being [place] unresponsive [place] the gas station. CPR was started, EMS found him in ventricular fibrillation. He received 3 rounds of defibrillation and epi. His downtime was 10 minutes prior to alevism of rhythm. Brought into the emergency room, was intubated. His EKG showed no acute ST segment elevation. He has been in sinus mechanism since admission. He continues to be on IV amiodarone. He is not responsive. He is on no vas opressors. His urinary output is stable. No other history is available. His chest x-ray showed no acute infiltrate. His initial troponin was 0.014. February 09: The patient is extubated, awake and alert, following commands. His brother is in the room giving history since the patient does not speak a lot of Turkish. Apparently he had a cardiac catheterization 5 years ago and mild CAD was noted. He has been doing well overall without any overt signs of angina pectoris or congestive heart failure. He denies any dizziness or palpitations at home and no prior syncopal episode. He was not told that he has ischemic cardiomyopathy. He continues to be in sinus mechanism with no further ventricular tachycardia. His blood pressure stable. He had an echocardiogram that showed an ejection fraction of 35 to 40% with distal anterior septal and apical severe hypokinesis to akinesis. The patient does not carry a history of prior myocardial infarction. 02/10 Patient seen and examined. Patient underwent left heart catheterization and showed 100% occlusion of LAD with some collaterals and patient underwent stenting. Unclear if this is more chronic or acute issue. Currently denies any chest pain or pressure. Medications: IV heparin, metoprolol 25 mg twice a day, aspirin once a day, atorvastatin 40 mg daily. He was on IV amiodarone. PHYSICAL EXAMINATION: Blood pressure 120/70 heart rate 60 LUNGS: Clear to auscultation HEART: Regular rate and rhythm, S1, S2. No S3. Systolic ejection murmur ABDOMEN: Soft, nontender, no organomegaly EXTREMETIES: No edema LAB: Hemoglobin 12.0, potassium 3.8, BUN 13, creatinine 0.87. His troponin was 2.3. IMPRESSION: 1. Cardiac arrest with ventricular fibrillation requiring CPR and cardioversion 2. Ischemic cardiomyopathy of unknown duration 3. Prior history of hypertension 4. Prior history of hyperlipidemia PLAN: Unclear if this is more of an acute [place] causing cardiac arrest, ventricular fibrillation versus primary heart arrhythmia with more chronic cardiomyopathy. Additionally logistically complicated with the patient from [facility] and likely traveling home in the next few weeks. Request electrophysiology input. Continue with amiodarone and beta-kane for now. Continue dual antiplatelets. Objective - Vital Signs Vital signs: Vital Signs Temp 98.4 F 02/10/25 12:00 Pulse 92 02/10/25 15:00 Resp 19 02/10/25 15:00 BP 130/79 02/10/25 15:00 Pulse Ox 98 02/10/25 15:00 FiO2 40 02/08/25 12:30 Intake & Output 02/09/25 02/10/25 02/10/25 18:59 06:59 18:59 Intake Total 1131.694 456 8907 Output Total 3750 925 1100 Balance -2618.635 -85 40 Weight 78.8 kg 78.8 kg Intake: IV 883.34 600 450 Amiodarone 450 mg In 33.34 Dextrose 5% in Water 250 ml @ 0.5 MG/MIN 16.667 mls/hr IV .Q15H [place] Rx#: [id number] Piperacillin-Tazobactam 3 100 100 .375 gm In Sodium Chloride 0.9% 100 ml @ 25 mls/hr IVPB Q8HR [place] Rx# :[id number] Sodium Chloride 0.9% 1, 750 600 50 000 ml @ 50 mls/hr IV . Q20H [place] Rx#:[id number] Intake, IV Titration 248.025 450 Amount Heparin Sod,Pork in 0.45% 248.025 NaCl 25,000 unit In 0.45 % NaCl 1 250ml.bag @ 9. 108 UNITS/KG/HR 10.001 mls/hr IV .Q24H [place] Rx#: [id number] Sodium Chloride 0.9% 1, 450 000 ml In Empty Bag 1 bag @ 1 ML/KG/HR 78.8 mls/hr IV .[id number] [place] Rx#: [id number] Oral 240 240 Output: Urine 3750 925 1100 Other: Voiding Method Indwelling Catheter Indwelling Catheter Indwelling Catheter ABP, PAP, CO, CI - Last Documented Arterial Blood Pressure 120/63 - Labs CBC & Chem 7: 02/10/25 05:15 02/10/25 05:15 Labs: Abnormal Lab Results - Last 24 Hours (Table) 02/09/25 02/09/25 02/10/25 Range/Units 18:09 19:00 05:15 RBC 3.75 L (4.40-5.60) 10*6/uL Hgb 11.5 L (13.0-17.0) g/dL Hct 33.4 L (39.6-50.0) % APTT (22.0-30.0) sec Potassium 3.3 L (3.5-5.1) mmol/L Chloride 109 H (98-107) mmol/L Glucose 112 H (74-99) mg/dL POC Glucose (mg/dL) (70-110) mg/dL Calcium 8.2 L (8.4-10.2) mg/dL 02/10/25 02/10/25 02/10/25 Range/Units 05:15 05:15 09:56 RBC 3.77 L (4.40-5.60) 10*6/uL Hgb 11.6 L (13.0-17.0) g/dL Hct 33.4 L (39.6-50.0) % APTT 43.3 H (22.0-30.0) sec Potassium (3.5-5.1) mmol/L Chloride (98-107) mmol/L Glucose (74-99) mg/dL POC Glucose (mg/dL) 114 H (70-110) mg/dL Calcium (8.4-10.2) mg/dL Microbiology - Last 24 Hours (Table) 02/07/25 19:23 Gram Stain - Final Sputum Sputum Culture - Final 02/08/25 17:30 Blood Culture - Preliminary Blood
[2025-02-10] MEDS: METOPROLOL TARTRATE 50 MG TAB PO SCH (20:02)
[2025-02-10] MEDS: AMIODARONE 200 MG TAB PO SCH (20:02)
[2025-02-10] MEDS: MELATONIN 3 MG TABLET PO SCH (23:40)
[2025-02-11 05:52] LABS: HCT 33.8 % (39.6-50.0); HGB 11.6 g/dL (13.0-17.0); MCH 30.9 pg (27.0-32.0); MCHC 34.3 g/dL (32.0-37.0); MCV 90.1 fL (80.0-97.0); Mean Platelet Volume 10.2 fL (9.5-12.2); Platelet Count 159 10*3/uL (140-440); RBC 3.75 10*6/uL (4.40-5.60); RDW 12.1 % (11.5-14.5); WBC 8.33 10*3/uL (4.50-10.00)
[2025-02-11 06:10] LABS: African American GFR (CKD) >90 (>60 ml/min/1.73 sqM); Anion Gap 7 mmol/L; Blood Urea Nitrogen 14 mg/dL (9-20); Calcium 8.4 mg/dL (8.4-10.2); Carbon Dioxide 22 mmol/L (22-30); Chloride 109 mmol/L (98-107); Glucose 107 mg/dL (74-99); Non-African American GFR(CKD) >90 (>60 ml/min/1.73 sqM); Potassium 3.8 mmol/L (3.5-5.1); Sodium 138 mmol/L (137-145)
[2025-02-11] MEDS: ASPIRIN 81 MG PO SCH (09:48)
[2025-02-11] MEDS: CLOPIDOGREL 75 MG TAB PO SCH (09:48)
[2025-02-11] MEDS: DAPAGLIFLOZIN PROPANEDIOL 10 MG TABLET PO SCH (09:49)
[2025-02-11] MEDS: ATORVASTATIN 40 MG TAB PO SCH (09:50)
--- NOTE | 2025-02-11 10:06 | P.PN ---
Subjective Progress Note Date: 02/11/25 This is a 64-year-old white male from [facility], visiting family in [facility], patient developed an episode of unresponsiveness while at the gas station. CPR was started, EMS arrived and the patient was in a ventricular fibrillation. Patient received 3 rounds of defibrillation and epinephrine by EMS, and his downtime was roughly about 10 minutes. Patient was brought into the ER, intubated, EKG showed no evidence of acute ST segment elevation, his initial troponin was normal, patient was in sinus rhythm, placed empirically on amiodarone, kept on mechanical ventilation and admitted to the ICU. Did not require any pressors since admission, patient seems to be hemodynamically stable, urine output is excellent, patient seems to be perfusing well, CT of the brain on admission was negative for acute CVA or bleed, chest x-ray showed no evidence of infiltrates and no evidence of pulmonary edema. Follow-up troponins and follow-up D-dimer were elevated, hence the patient will have a CT angiogram of the chest, in the meantime he was placed on heparin as per cardiology. After evaluating the patient, I went ahead and placed a right radial arterial line for hemodynamic monitoring and for frequent blood draws, patient will be going down for CT angiogram of the chest to rule out pulmonary embolism. In the meantime we will continue heparin as per protocol. Neurologically could not assess the patient while on propofol, hence I have recommended holding propofol today and assess mental status off propofol if possible. Patient was seen today on 02/09/2025, patient was extubated yesterday, tolerated the extubation well. His initial presentation was a presentation of ventricular fibrillation cardiac arrest. Patient was found to have abnormal echocardiogram with ejection fraction of 35 to 40% he remains on amiodarone at 0.5 mg/h, remains on heparin drip, and his CT of the chest showed no evidence of pulmonary embolism. CT of the chest raised the possibility of aspiration pneumonia and interstitial edema has the patient received Zosyn and received diuretics. He is supposed to undergo cardiac catheterization tomorrow by Dr. Persaud. In the meantime the patient to remain in the ICU will remain on 4 L nasal cannula. WBC count today is 10.8 hemoglobin is 12 PTT is 49.9 electrolytes are normal with normal renal profile. His brother is at bedside, translated to him the treatment plan and the fact that he will undergo cardiac catheterization likely tomorrow. Patient does not speak any Tamazight. According to the blankmaker he may have had a cardiac catheterization in [facility] over 5 years ago, results of which are unknown. The patient is seen today February 10, 2025 in follow-up in the intensive care unit. He is just back from the cardiac catheterization lab. He was found to have a chronically occluded proximal LAD and then had undergone successful stenting of the proximal and mid LAD with reduction of stenosis from 100% to less than 5%. He is currently resting in bed. Awake and alert in no acute distress. His family is at the bedside that provides most of the language interpretation. He is maintaining good O2 saturations in the upper 90s on 2 L/min per nasal cannula. He is afebrile. Hemodynamically stable. Sputum and blood cultures revealed no growth. White count 8.8. Hemoglobin 11.6. Platelets 169. Sodium 140. Potassium 3.6. Bicarb 25. BUN 15. Creatinine 0.83. Glucose 112. He is on aspirin and Plavix. Remains on amiodarone. Antibiotics in the form of Zosyn. Procalcitonin was 0.18. Today's chest x-ray shows a similar right basilar infiltrate. The patient is seen today February 11, 2025 and follow-up in the intensive care unit. He is resting comfortably in bed. Awake and alert in no acute distress. He denies any chest pain. He denies any shortness of breath, cough or congestion. He is maintaining good O2 saturations in the 90s on room air. No IV fluids. Blood culture revealed no growth. Sputum culture revealed no growth. White count 8.3. Hemoglobin 11.6. Platelets 159. Sodium 138. Potassium 3.8. Bicarb 22. BUN 14. Creatinine 0.86. Glucose 107. He remains on DuoNeb inhalations. Continued on aspirin and Plavix. He remains on Zosyn. Objective - Vital Signs Vital signs: Vital Signs Temp 97.7 F 02/11/25 08:00 Pulse 99 02/11/25 09:00 Resp 18 02/11/25 08:00 BP 126/40 02/11/25 08:00 Pulse Ox 94 L 02/11/25 08:00 FiO2 40 02/08/25 12:30 Intake & Output 02/10/25 02/11/25 02/11/25 18:59 06:59 18:59 Intake Total 1510 580 10 Output Total 1400 830 230 Balance 110 -250 -220 Weight 78.8 kg 105.8 kg Intake: IV 550 100 Piperacillin-Tazobactam 3 200 100 .375 gm In Sodium Chloride 0.9% 100 ml @ 25 mls/hr IVPB Q8HR [place] Rx# :[id number] Sodium Chloride 0.9% 1, 50 000 ml @ 50 mls/hr IV . Q20H [place] Rx#:[id number] Intake, IV Titration 480 120 10 Amount Sodium Chloride 0.9% 1, 480 120 10 000 ml In Empty Bag 1 bag @ 1 ML/KG/HR 78.8 mls/hr IV .[id number] [place] Rx#: [id number] Oral 480 360 Output: Urine 1400 830 230 Other: Voiding Method Indwelling Catheter Indwelling Catheter # Bowel Movements 1 ABP, PAP, CO, CI - Last Documented Arterial Blood Pressure 120/63 - Exam GENERAL EXAM: Alert, pleasant 64-year-old [place] male, on room air oxygen, c omfortable in no apparent distress. HEAD: Normocephalic. EYES: Normal reaction of pupils, equal size. NOSE: Clear with pink turbinates. THROAT: No erythema or exudates. NECK: No masses, no JVD. CHEST: No chest wall deformity. LUNGS: Equal air entry with no crackles, wheeze, rhonchi or dullness. CVS: S1 and S2 normal with no audible murmur, regular rhythm. ABDOMEN: No hepatosplenomegaly, normal bowel sounds, no guarding or rigidity. SPINE: No scoliosis or deformity SKIN: No rashes CENTRAL NERVOUS SYSTEM: No focal deficits, tone is normal in all 4 extremities. EXTREMITIES: Right radial vascular band in place. There is no peripheral edema. No clubbing, no cyanosis. Peripheral pulses are intact. - Labs CBC & Chem 7: 02/11/25 05:17 02/11/25 05:17 Labs: Abnormal Lab Results - Last 24 Hours (Table) 02/10/25 02/11/25 02/11/25 Range/Units 15:39 05:17 05:17 RBC 3.75 L (4.40-5.60) 10*6/uL Hgb 11.6 L (13.0-17.0) g/dL Hct 33.8 L (39.6-50.0) % Chloride 109 H (98-107) mmol/L Glucose 107 H (74-99) mg/dL Troponin I 2.730 H* (0.000-0.034) ng/mL Microbiology - Last 24 Hours (Table) 02/08/25 17:30 Blood Culture - Preliminary Blood 02/07/25 19:23 Gram Stain - Final Sputum Sputum Culture - Final Assessment and Plan Assessment: Ventricular fibrillation cardiac arrest, downtime 10 minutes Acute hypoxic respiratory failure secondary to above requiring intubation and mechanical ventilation, patient was extubated on 02/09/2024, tolerated extubation well. Recovered and on room air oxygen Coronary artery disease with a chronically occluded proximal LAD, status post stenting to the mid and proximal LAD 02/10/2025 No evidence of anoxic brain injury based on his clinical's findings and based on brain CT x 2 History of hypertension Ruled out thromboembolic disease/pulmonary embolism Possible aspiration pneumonia based on CT of the chest Acute systolic congestive heart failure Plan: The patient was seen and evaluated Labs and medications reviewed He remains stable and on room air oxygen Continued on aspirin and Plavix Continued on amiodarone Discontinue Zosyn Plan of care was discussed with the patient and his son Stable for transfer out of the intensive care unit We will continue to follow I have personally seen and examined the patient, performed the documentation and the assessment and plan as written. Number of minutes spent on the visit: 10 Dictation was produced using [employer] dictation software. Please excuse any grammatical, word or spelling errors.
--- NOTE | 2025-02-11 13:17 | P.PN ---
Subjective PROGRESS NOTE The patient is a 64-year-old male, [place] in origin who presented to the emergency room after being [place] unresponsive at the gas station. CPR was started, EMS found him in ventricular fibrillation. He received 3 rounds of defibrillation and epi. His downtime was 10 minutes prior to mandaeism of rhythm. Brought into the emergency room, was intubated. His EKG showed no acute ST segment elevation. He has been in sinus mechanism since admission. He continues to be on IV amiodarone. He is not responsive. He is on no vas opressors. His urinary output is stable. No other history is available. His chest x-ray showed no acute infiltrate. His initial troponin was 0.014. February 09: The patient is extubated, awake and alert, following commands. His brother is in the room giving history since the patient does not speak a lot of Hebrew. Apparently he had a cardiac catheterization 5 years ago and mild CAD was noted. He has been doing well overall without any overt signs of angina pectoris or congestive heart failure. He denies any dizziness or palpitations at home and no prior syncopal episode. He was not told that he has ischemic cardiomyopathy. He continues to be in sinus mechanism with no further ventricular tachycardia. His blood pressure stable. He had an echocardiogram that showed an ejection fraction of 35 to 40% with distal anterior septal and apical severe hypokinesis to akinesis. The patient does not carry a history of prior myocardial infarction. 02/10 Patient seen and examined. Patient underwent left heart catheterization and showed 100% occlusion of LAD with some collaterals and patient underwent stenting. Unclear if this is more chronic or acute issue. Currently denies any chest pain or pressure. 02/11 Patient seen and examined. Patient denies any chest pain or pressure. Blood pressure is well-controlled. He was transition to oral amiodarone and no significant ectopy. PHYSICAL EXAMINATION: Blood pressure 120/70 heart rate 60 LUNGS: Clear to auscultation HEART: Regular rate and rhythm, S1, S2. No S3. Systolic ejection murmur ABDOMEN: Soft, nontender, no organomegaly EXTREMETIES: No edema LAB: Hemoglobin 12.0, potassium 3.8, BUN 13, creatinine 0.87. His troponin was 2.3. IMPRESSION: 1. Cardiac arrest with ventricular fibrillation requiring CPR and cardioversion 2. Ischemic cardiomyopathy of unknown duration 3. Prior history of hypertension 4. Prior history of hyperlipidemia 5. CAD s/p PCI LAD, may be more of a chronic lesion PLAN: Patient with LAD 100% stenosis however may be more chronic with only mild elevation in troponins. Therefore more concern of primary arrhythmia genic source from his cardiomyopathy. We discussed indication for LifeVest and possibly AICD down the road if his EF does not improve and patient and family understanding. Arrange for LifeVest and he should be able to return this in [facility]. Otherwise continue with heart failure regimen. Appears stable for discharge once he has his LifeVest placed. Objective - Vital Signs Vital signs: Vital Signs Temp 97.6 F 02/11/25 12:00 Pulse 82 02/11/25 13:00 Resp 18 02/11/25 12:00 BP 101/69 02/11/25 12:00 Pulse Ox 96 02/11/25 12:00 FiO2 40 02/08/25 12:30 Intake & Output 02/10/25 02/11/25 02/11/25 18:59 06:59 18:59 Intake Total 1510 580 110 Output Total 1400 830 230 Balance 110 -250 -120 Weight 78.8 kg 105.8 kg Intake: IV 550 100 100 Piperacillin-Tazobactam 3 200 100 100 .375 gm In Sodium Chloride 0.9% 100 ml @ 25 mls/hr IVPB Q8HR [place] Rx# :[id number] Sodium Chloride 0.9% 1, 50 000 ml @ 50 mls/hr IV . Q20H [place] Rx#:[id number] Intake, IV Titration 480 120 10 Amount Sodium Chloride 0.9% 1, 480 120 10 000 ml In Empty Bag 1 bag @ 1 ML/KG/HR 78.8 mls/hr IV .[id number] [place] Rx#: [id number] Oral 480 360 Output: Urine 1400 830 230 Other: Voiding Method Indwelling Catheter Indwelling Catheter Indwelling Catheter # Voids 1 # Bowel Movements 1 ABP, PAP, CO, CI - Last Documented Arterial Blood Pressure 120/63 - Labs CBC & Chem 7: 02/11/25 05:17 02/11/25 05:17 Labs: Abnormal Lab Results - Last 24 Hours (Table) 02/10/25 02/11/25 02/11/25 Range/Units 15:39 05:17 05:17 RBC 3.75 L (4.40-5.60) 10*6/uL Hgb 11.6 L (13.0-17.0) g/dL Hct 33.8 L (39.6-50.0) % Chloride 109 H (98-107) mmol/L Glucose 107 H (74-99) mg/dL Troponin I 2.730 H* (0.000-0.034) ng/mL Microbiology - Last 24 Hours (Table) 02/08/25 17:30 Blood Culture - Preliminary Blood
--- NOTE | 2025-02-11 15:12 | P.PN ---
Subjective Progress Note Date: 02/11/25 Patient is a 64-year-old male admitted after cardiopulmonary resuscitation. Patient had ventricular fibrillation received 3 rounds of defibrillation and epinephrine and downtime was 10 minutes. Patient does have drains intact brainstem function patient is intubated and still sedated patient is on IV amiodarone drip cardiology evaluated the patient patient has elevated troponin which was a second 1 about 2.4. First troponin was negative. Patient also has elevated D-dimer because of which patient will undergo CT angio of the chest to rule out any pulmonary embolism that may have contributed to his cardiopulmonary arrest patient had a CT of the head and neck which did not show any significant abnormality chest x-ray showed appropriate placement of endotracheal tube cardiomegaly without any other significant abnormalities. Patient does have intact brainstem function patient is breathing over the ventilator does have pupillary reflexes. Patient although is on muscle relaxants as he is intubated. Patient is not on any pressor support patient is on IV heparin at this time. 02/09/2025 Patient extubated on nasal cannula oxygen clinically doing well patient had a CT of the chest which did not show any pulm embolism but did show pneumonia in the right lower lung min and patient also has pulmonary edema. Patient had a decreased ejection of 30 to 35% on the echocardiogram concern for ischemic cardiomyopathy and coronary artery disease with acute CT. Cardiology is recommending cardiac catheterization. 02/10/2025 Patient underwent cardiac authorization found to have chronic occlusion of LAD and had stent to stent to LAD patient has some disease in the RCA as well. Patient is otherwise clinically doing well at this time. Patient is still on 4 L of oxygen saturating at 94% REVIEW OF SYSTEMS: 02/11/2025 Patient is evaluated today in the ICU resting in bed. No acute complaints. He is status post stenting of the mid and proximal LAD. Echocardiogram reveals an EF of 35-40%. Patient will need lifevest on discharge which is being worked on. Review of Systems Constitutional: Denied any fatigue denied any fever. Cardio vascular: denied any chest pain, palpitations Gastrointestinal: denied any nausea, vomiting, diarrhea Pulmonary: Denied any shortness of breath cough Neurologic denied any new focal deficits All inpatient medications were reviewed and appropriate changes in these medications as dictated in the interval history and assessment and plan. PHYSICAL EXAMINATION: GENERAL: The patient is alert and oriented x3, not in any acute distress. Well developed, well nourished. HEENT: Pupils are round and equally reacting to light. EOMI. No scleral icterus. No conjunctival pallor. Normocephalic, atraumatic. No pharyngeal erythema. No thyromegaly. CARDIOVASCULAR: S1 and S2 present. No murmurs, rubs, or gallops. PULMONARY: Chest is clear to auscultation, no wheezing or crackles. ABDOMEN: Soft, nontender, nondistended, normoactive bowel sounds. No palpable organomegaly. MUSCULOSKELETAL: No joint swelling or deformity. EXTREMITIES: No cyanosis, clubbing, or pedal edema. NEUROLOGICAL: Gross neurological examination did not reveal any focal deficits. SKIN: No rashes. Assessment and plan -Cardiorespiratory arrest status post CPR secondary to ventricular fibrillation for which patient is on amiodarone - non-ST elevation myocardial infarction patient had cardiac catheterization and stents to LAD and patient is on beta-kane and LYNNE inhibitor statin, - Congestive heart failure acute systolic dysfunction from an acute CT, patient is in acute exacerbation patient received IV Lasix. -Ischemic cardiomyopathy unclear whether this is new or not EF 35-40% - Acute hypoxic respiratory failure secondary to possibly pulmonary edema cardiorespiratory arrest --Right lower lobe pneumonia for which patient was started on antibiotics. - V. tach/V-fib for which patient is on amiodarone secondary to acute CT - Elevated D-dimer will rule out pulmonary embolism CT angio of the chest is negative for pulmonary embolism - Hypertension - Hyperlipidemia - Benign prostatic hypertrophy - For above-mentioned chronic chronic medical problems patient will be on appropriate home medications Social work is working on getting the patient a life vest. Patient is on aspirin and plavix therapy. The impression and plan of care has been dictated by Enriqueta Del Cid, Nurse Practitioner as directed. Dr. Zully MD I have performed a history and physical examination and medical decision making of this patient, discussed the same with the dictator, and agree with the dictators assessment and plan as written, documented as a scribe. Based on total visit time, I have performed more than 50% of this visit. Objective - Vital Signs Vital signs: Vital Signs Temp 97.6 F 02/11/25 12:00 Pulse 82 02/11/25 13:00 Resp 18 02/11/25 12:00 BP 101/69 02/11/25 12:00 Pulse Ox 96 02/11/25 12:00 FiO2 40 02/08/25 12:30 Intake & Output 02/10/25 02/11/25 02/11/25 18:59 06:59 18:59 Intake Total 1510 580 110 Output Total 1400 830 230 Balance 110 -250 -120 Weight 78.8 kg 105.8 kg Intake: IV 550 100 100 Piperacillin-Tazobactam 3 200 100 100 .375 gm In Sodium Chloride 0.9% 100 ml @ 25 mls/hr IVPB Q8HR [place] Rx# :[id number] Sodium Chloride 0.9% 1, 50 000 ml @ 50 mls/hr IV . Q20H [place] Rx#:[id number] Intake, IV Titration 480 120 10 Amount Sodium Chloride 0.9% 1, 480 120 10 000 ml In Empty Bag 1 bag @ 1 ML/KG/HR 78.8 mls/hr IV .[id number] [place] Rx#: [id number] Oral 480 360 Output: Urine 1400 830 230 Other: Voiding Method Indwelling Catheter Indwelling Catheter Toilet # Voids 1 # Bowel Movements 1 ABP, PAP, CO, CI - Last Documented Arterial Blood Pressure 120/63 - Labs CBC & Chem 7: 02/11/25 05:17 02/11/25 05:17 Labs: Abnormal Lab Results - Last 24 Hours (Table) 02/10/25 02/11/25 02/11/25 Range/Units 15:39 05:17 05:17 RBC 3.75 L (4.40-5.60) 10*6/uL Hgb 11.6 L (13.0-17.0) g/dL Hct 33.8 L (39.6-50.0) % Chloride 109 H (98-107) mmol/L Glucose 107 H (74-99) mg/dL Troponin I 2.730 H* (0.000-0.034) ng/mL Microbiology - Last 24 Hours (Table) 02/08/25 17:30 Blood Culture - Preliminary Blood Assessment and Plan Time with Patient: Less than 30
[2025-02-12 07:07] LABS: African American GFR (CKD) >90 (>60 ml/min/1.73 sqM); Anion Gap 9 mmol/L; Blood Urea Nitrogen 15 mg/dL (9-20); Calcium 8.8 mg/dL (8.4-10.2); Carbon Dioxide 21 mmol/L (22-30); Chloride 107 mmol/L (98-107); Glucose 96 mg/dL (74-99); Non-African American GFR(CKD) 86 (>60 ml/min/1.73 sqM); Potassium 3.8 mmol/L (3.5-5.1); Sodium 137 mmol/L (137-145)
--- NOTE | 2025-02-12 11:47 | P.PN ---
Subjective Progress Note Date: 02/12/25 This is a 64-year-old white male from [facility], visiting family in [facility], patient developed an episode of unresponsiveness while at the gas station. CPR was started, EMS arrived and the patient was in a ventricular fibrillation. Patient received 3 rounds of defibrillation and epinephrine by EMS, and his downtime was roughly about 10 minutes. Patient was brought into the ER, intubated, EKG showed no evidence of acute ST segment elevation, his initial troponin was normal, patient was in sinus rhythm, placed empirically on amiodarone, kept on mechanical ventilation and admitted to the ICU. Did not require any pressors since admission, patient seems to be hemodynamically stable, urine output is excellent, patient seems to be perfusing well, CT of the brain on admission was negative for acute CVA or bleed, chest x-ray showed no evidence of infiltrates and no evidence of pulmonary edema. Follow-up troponins and follow-up D-dimer were elevated, hence the patient will have a CT angiogram of the chest, in the meantime he was placed on heparin as per cardiology. After evaluating the patient, I went ahead and placed a right radial arterial line for hemodynamic monitoring and for frequent blood draws, patient will be going down for CT angiogram of the chest to rule out pulmonary embolism. In the meantime we will continue heparin as per protocol. Neurologically could not assess the patient while on propofol, hence I have recommended holding propofol today and assess mental status off propofol if possible. Patient was seen today on 02/09/2025, patient was extubated yesterday, tolerated the extubation well. His initial presentation was a presentation of ventricular fibrillation cardiac arrest. Patient was found to have abnormal echocardiogram with ejection fraction of 35 to 40% he remains on amiodarone at 0.5 mg/h, remains on heparin drip, and his CT of the chest showed no evidence of pulmonary embolism. CT of the chest raised the possibility of aspiration pneumonia and interstitial edema has the patient received Zosyn and received diuretics. He is supposed to undergo cardiac catheterization tomorrow by Dr. Persaud. In the meantime the patient to remain in the ICU will remain on 4 L nasal cannula. WBC count today is 10.8 hemoglobin is 12 PTT is 49.9 electrolytes are normal with normal renal profile. His brother is at bedside, translated to him the treatment plan and the fact that he will undergo cardiac catheterization likely tomorrow. Patient does not speak any Syriac. According to the bit tapper he may have had a cardiac catheterization in [facility] over 5 years ago, results of which are unknown. The patient is seen today February 10, 2025 in follow-up in the intensive care unit. He is just back from the cardiac catheterization lab. He was found to have a chronically occluded proximal LAD and then had undergone successful stenting of the proximal and mid LAD with reduction of stenosis from 100% to less than 5%. He is currently resting in bed. Awake and alert in no acute distress. His family is at the bedside that provides most of the language interpretation. He is maintaining good O2 saturations in the upper 90s on 2 L/min per nasal cannula. He is afebrile. Hemodynamically stable. Sputum and blood cultures revealed no growth. White count 8.8. Hemoglobin 11.6. Platelets 169. Sodium 140. Potassium 3.6. Bicarb 25. BUN 15. Creatinine 0.83. Glucose 112. He is on aspirin and Plavix. Remains on amiodarone. Antibiotics in the form of Zosyn. Procalcitonin was 0.18. Today's chest x-ray shows a similar right basilar infiltrate. The patient is seen today February 11, 2025 and follow-up in the intensive care unit. He is resting comfortably in bed. Awake and alert in no acute distress. He denies any chest pain. He denies any shortness of breath, cough or congestion. He is maintaining good O2 saturations in the 90s on room air. No IV fluids. Blood culture revealed no growth. Sputum culture revealed no growth. White count 8.3. Hemoglobin 11.6. Platelets 159. Sodium 138. Potassium 3.8. Bicarb 22. BUN 14. Creatinine 0.86. Glucose 107. He remains on DuoNeb inhalations. Continued on aspirin and Plavix. He remains on Zosyn. The patient is seen today February 12, 2025 in follow-up in the intensive care unit. He is a 3 S. overflow patient. He is sitting up in a chair. Awake and alert in no acute distress. He has been up ambulating in the hallway with assistance. He is maintaining good O2 saturations in the upper 90s on room air. He has been afebrile. Hemodynamically stable. Sputum culture revealed no growth. Blood culture revealed no growth. Sodium 137. Potassium 3.8. Bicarb 21. BUN 15. Creatinine 0.93. Glucose 96. He is continued on aspirin and Plavix. Continued on statins, LYNNE inhibitor's, beta-blockers and Farxiga. Objective - Vital Signs Vital signs: Vital Signs Temp 98.7 F 02/11/25 19:00 Pulse 77 02/12/25 08:16 Resp 16 02/12/25 04:00 BP 128/77 02/12/25 04:00 Pulse Ox 98 02/12/25 08:12 FiO2 40 02/08/25 12:30 Intake & Output 02/11/25 02/12/25 02/12/25 18:59 06:59 18:59 Intake Total 110 Output Total 230 Balance -120 Weight 103.7 kg Intake: IV 100 Piperacillin-Tazobactam 3 100 .375 gm In Sodium Chloride 0.9% 100 ml @ 25 mls/hr IVPB Q8HR [place] Rx# :[id number] Intake, IV Titration 10 Amount Sodium Chloride 0.9% 1, 10 000 ml In Empty Bag 1 bag @ 1 ML/KG/HR 78.8 mls/hr IV .[id number] [place] Rx#: [id number] Output: Urine 230 Other: Voiding Method Toilet Toilet # Voids 2 1 # Bowel Movements 1 ABP, PAP, CO, CI - Last Documented Arterial Blood Pressure 120/63 - Exam GENERAL EXAM: Alert, pleasant 64-year-old Azeri male, on room air oxygen, sitting up in a chair, comfortable in no apparent distress. HEAD: Normocephalic. EYES: Normal reaction of pupils, equal size. NOSE: Clear with pink turbinates. THROAT: No erythema or exudates. NECK: No masses, no JVD. CHEST: No chest wall deformity. LUNGS: Equal air entry with no crackles, wheeze, rhonchi or dullness. CVS: S1 and S2 normal with no audible murmur, regular rhythm. ABDOMEN: No hepatosplenomegaly, normal bowel sounds, no guarding or rigidity. SPINE: No scoliosis or deformity SKIN: No rashes CENTRAL NERVOUS SYSTEM: No focal deficits, tone is normal in all 4 extremities. EXTREMITIES: There is no peripheral edema. No clubbing, no cyanosis. Peripheral pulses are intact. - Labs CBC & Chem 7: 02/11/25 05:17 02/12/25 04:55 Labs: Abnormal Lab Results - Last 24 Hours (Table) 02/12/25 Range/Units 04:55 Carbon Dioxide 21 L (22-30) mmol/L Microbiology - Last 24 Hours (Table) 02/08/25 17:30 Blood Culture - Preliminary Blood Assessment and Plan Assessment: Ventricular fibrillation cardiac arrest, downtime 10 minutes Acute hypoxic respiratory failure secondary to above requiring intubation and mechanical ventilation, patient was extubated on 02/09/2024, tolerated extubation well. Recovered and on room air oxygen Coronary artery disease with a chronically occluded proximal LAD, status post stenting to the mid and proximal LAD 02/10/2025 No evidence of anoxic brain injury based on his clinical's findings and based on brain CT x 2 History of hypertension Ruled out thromboembolic disease/pulmonary embolism Possible aspiration pneumonia based on CT of the chest Acute systolic congestive heart failure Plan: The patient was seen and evaluated Labs and medications reviewed Stable and on room air oxygen Continued on aspirin and Plavix Continued on amiodarone Continued on statins Continued on LYNNE inhibitor, beta-blockers Continued on Farxiga Continued on Aldactone Increase his activity as tolerated Home once cleared by cardiology I have personally seen and examined the patient, performed the documentation and the assessment and plan as written. Number of minutes spent on the visit: 10 Dictation was produced using [employer] dictation software. Please excuse any grammatical, word or spelling errors.
--- NOTE | 2025-02-12 12:23 | P.PN ---
Subjective PROGRESS NOTE The patient is a 64-year-old male, [place] in origin who presented to the emergency room after being [place] unresponsive at the gas station. CPR was started, EMS found him in ventricular fibrillation. He received 3 rounds of defibrillation and epi. His downtime was 10 minutes prior to bahai of rhythm. Brought into the emergency room, was intubated. His EKG showed no acute ST segment elevation. He has been in sinus mechanism since admission. He continues to be on IV amiodarone. He is not responsive. He is on no vas opressors. His urinary output is stable. No other history is available. His chest x-ray showed no acute infiltrate. His initial troponin was 0.014. February 09: The patient is extubated, awake and alert, following commands. His brother is in the room giving history since the patient does not speak a lot of Indonesian. Apparently he had a cardiac catheterization 5 years ago and mild CAD was noted. He has been doing well overall without any overt signs of angina pectoris or congestive heart failure. He denies any dizziness or palpitations at home and no prior syncopal episode. He was not told that he has ischemic cardiomyopathy. He continues to be in sinus mechanism with no further ventricular tachycardia. His blood pressure stable. He had an echocardiogram that showed an ejection fraction of 35 to 40% with distal anterior septal and apical severe hypokinesis to akinesis. The patient does not carry a history of prior myocardial infarction. 02/10 Patient seen and examined. Patient underwent left heart catheterization and showed 100% occlusion of LAD with some collaterals and patient underwent stenting. Unclear if this is more chronic or acute issue. Currently denies any chest pain or pressure. 02/11 Patient seen and examined. Patient denies any chest pain or pressure. Blood pressure is well-controlled. He was transition to oral amiodarone and no significant ectopy. 02/12 Patient denies any chest pain or pressure. There have been logistical issues getting the LifeVest. Patient stating he likely would not be wearing at night and is concerned with the fact of wearing it. Multiple questions regarding travel. PHYSICAL EXAMINATION: Blood pressure 120/70 heart rate 60 LUNGS: Clear to auscultation HEART: Regular rate and rhythm, S1, S2. No S3. Systolic ejection murmur ABDOMEN: Soft, nontender, no organomegaly EXTREMETIES: No edema LAB: Hemoglobin 12.0, potassium 3.8, BUN 13, creatinine 0.87. His troponin was 2.3. IMPRESSION: 1. Cardiac arrest with ventricular fibrillation requiring CPR and cardioversion 2. Ischemic cardiomyopathy of unknown duration 3. Prior history of hypertension 4. Prior history of hyperlipidemia 5. CAD s/p PCI LAD, may be more of a chronic lesion PLAN: Patient with LAD 100% stenosis however may be more chronic with only mild elevation in troponins. Patient not able or willing to wear the LifeVest with a number of logistical issues. We discussed that patient is not can wear a LifeVest likely go home with a 1 week event monitor to evaluate for any more significant arrhythmia on the amiodarone. This would be mainly to further risk stratify patient. Patient cleared for discharge home today. Objective - Vital Signs Vital signs: Vital Signs Temp 98.7 F 02/11/25 19:00 Pulse 77 02/12/25 08:16 Resp 16 02/12/25 04:00 BP 128/77 02/12/25 04:00 Pulse Ox 98 02/12/25 08:12 FiO2 40 02/08/25 12:30 Intake & Output 02/11/25 02/12/25 02/12/25 18:59 06:59 18:59 Intake Total 110 Output Total 230 Balance -120 Weight 103.7 kg Intake: IV 100 Piperacillin-Tazobactam 3 100 .375 gm In Sodium Chloride 0.9% 100 ml @ 25 mls/hr IVPB Q8HR [place] Rx# :[id number] Intake, IV Titration 10 Amount Sodium Chloride 0.9% 1, 10 000 ml In Empty Bag 1 bag @ 1 ML/KG/HR 78.8 mls/hr IV .[id number] [place] Rx#: [id number] Output: Urine 230 Other: Voiding Method Toilet Toilet # Voids 2 1 # Bowel Movements 1 ABP, PAP, CO, CI - Last Documented Arterial Blood Pressure 120/63 - Labs CBC & Chem 7: 02/11/25 05:17 02/12/25 04:55 Labs: Abnormal Lab Results - Last 24 Hours (Table) 02/12/25 Range/Units 04:55 Carbon Dioxide 21 L (22-30) mmol/L Microbiology - Last 24 Hours (Table) 02/08/25 17:30 Blood Culture - Preliminary Blood
[2025-02-12 13:02] VITALS: BP 113/73; PULSE 64; RESP 18; TEMP 98
--- NOTE | 2025-02-15 00:17 | P.DS ---
Providers Date of admission: 02/07/25 19:58 Attending physician: Beka Bertrand Consults: 02/07/25 19:57 Consult Physician Urgent Consulting Provider: Cardiology Rosa M Consult Reason/Comments: acute v-fib arrest Do you want consulting provider notified?: Already Contacted 02/07/25 19:58 Consult Physician Stat Consulting Provider: Inocencio Medrano Consult Reason/Comments: acute vfib arrest Do you want consulting provider notified?: Yes 02/08/25 08:40 Consult Physician Stat Consulting Provider: Giana Persaud Consult Reason/Comments: cardiac arrest Do you want consulting provider notified?: Yes 02/10/25 09:37 Consult Physician Routine Consulting Provider: Kaushal Mederos Consult Reason/Comments: Post Interventional Patient Do you want consulting provider notified?: Already Contacted Primary care physician: Stated None Hospital Course: Final Diagnosis -Cardiorespiratory arrest status post CPR secondary to ventricular fibrillation for which patient is on amiodarone - non-ST elevation myocardial infarction patient had cardiac catheterization and stents to LAD and patient is on beta-kane and LYNNE inhibitor statin, - Congestive heart failure acute systolic dysfunction from an acute [place], patient is in acute exacerbation patient received IV Lasix. -Ischemic cardiomyopathy unclear whether this is new or not EF 35-40% - Acute hypoxic respiratory failure secondary to possibly pulmonary edema cardiorespiratory arrest --Right lower lobe pneumonia for which patient was started on antibiotics. - V. tach/V-fib for which patient is on amiodarone secondary to acute [place] - Elevated D-dimer will rule out pulmonary embolism CT angio of the chest is negative for pulmonary embolism - Hypertension - Hyperlipidemia - Benign prostatic hypertrophy Discharge Disposition Patient stable for DC with overall guarded prognosis due to the ischemic cardiomyopathy and unable to obtain the lifevest. He has been optimized on cardiac medications. Has a follow up with Dr. Graham scheduled for february 20. Hospital Course Patient is a 64-year-old male admitted after cardiopulmonary resuscitation. He is here visiting from [facility] and speaks limited italian. Patient had ventricular fibrillation received 3 rounds of defibrillation and epinephrine and downtime was 10 minutes. Patient was brought to the ICU on the mechanical ventilator and started on IV amiodarone. First troponin was negative. Patient also has elevated D-dimer. CTA negative for pulmonary embolism. patient had a CT of the head and neck which did not show any significant abnormality chest x-ray showed appropriate placement of endotracheal tube cardiomegaly without any other significant abnormalities. Patient had a decreased ejection of 30 to 35% on the echocardiogram concern for ischemic cardiomyopathy and coronary artery disease with acute [place]. Patient underwent cardiac authorization found to have chronic occlusion of LAD and had stent to stent to LAD patient has some disease in the RCA as well. Patient is otherwise clinically doing well at this time.Cardiology recommended lifevest although unable to coordinate [place] and [place]. Patient will discharge with 1 week event monitor to risk stratify the patient per cardiac recommendations. He will need to see Dr Graham in the office in 1 week. Please see medication reconciliation for a list of current medications. Thank you for allowing us to participate in the care of this patient. The impression and plan of care has been dictated by Enriqueta Del Cid, Nurse Practitioner as directed. Dr. Zully MD I have performed a history and physical examination and medical decision making of this patient, discussed the same with the dictator, and agree with the dictators assessment and plan as written, documented as a scribe. Based on total visit time, I have performed more than 50% of this visit. Patient Condition at Discharge: Fair Plan - Discharge Summary New Discharge Prescriptions: New Spironolactone [Aldactone] 25 mg PO DAILY #30 tab Metoprolol Tartrate [Lopressor] 50 mg PO BID #60 tab lisinopriL [Zestril] 2.5 mg PO BID #30 tab Aspirin 81 mg PO DAILY #30 tab Amiodarone [Cordarone] 200 mg PO BID #60 tab Dapagliflozin Propanediol [Farxiga] 10 mg PO DAILY #30 tab Atorvastatin [Lipitor] 40 mg PO DAILY #30 tab Clopidogrel [Plavix] 75 mg PO DAILY #30 tab Continue Dutasteride [Avodart] 0.5 mg PO W/LUNCH Discontinued Rosuvastatin [Crestor] 20 mg PO HS Metoprolol Tartrate [Lopressor] 100 mg PO DAILY amLODIPine [Norvasc] 10 mg PO HS Irbesartan [Avapro] 150 mg PO DAILY Discharge Medication List Dutasteride [Avodart] 0.5 mg PO W/LUNCH 02/08/25 [History] Amiodarone [Cordarone] 200 mg PO BID #60 tab 02/12/25 [Rx] Aspirin 81 mg PO DAILY #30 tab 02/12/25 [Rx] Atorvastatin [Lipitor] 40 mg PO DAILY #30 tab 02/12/25 [Rx] Clopidogrel [Plavix] 75 mg PO DAILY #30 tab 02/12/25 [Rx] Dapagliflozin Propanediol [Farxiga] 10 mg PO DAILY #30 tab 02/12/25 [Rx] Metoprolol Tartrate [Lopressor] 50 mg PO BID #60 tab 02/12/25 [Rx] Spironolactone [Aldactone] 25 mg PO DAILY #30 tab 02/12/25 [Rx] lisinopriL [Zestril] 2.5 mg PO BID #30 tab 02/12/25 [Rx] Follow up Appointment(s)/Referral(s): Foster Graham DO [STAFF PHYSICIAN] - 02/20/25 1:30 pm (Contact Agent) None,Stated [Primary Care Provider] - 1-2 days Patient Instructions/Handouts: Heart Attack (DC), After Radial Heart Cath eterization (GEN) Activity/Diet/Wound Care/Special Instructions: Wear the event monitor for 1 week and follow up with Dr Graham in the office in 1 to 2 weeks. Discharge Disposition: HOME SELF-CARE
== END 2025-02-12 17:10 | disposition home or self-care (01) | DRG 321 ==
LOC: EC 17:23 → 2SICU 19:58
PROVIDERS: ADMIT Hospitalist; ATTEND Hospitalist
PROC: 5A1935Z Respiratory Ventilation, Less than 24 Consecutive Hours (ICD-10-PCS; 2025-02-07)
PROC: 3E033RZ Introduction of Antiarrhythmic into Peripheral Vein, Percutaneous Approach (ICD-10-PCS; 2025-02-07)
PROC: 4A133B1 Monitoring of Arterial Pressure, Peripheral, Percutaneous Approach (ICD-10-PCS; 2025-02-08)
PROC: 03HY32Z Insertion of Monitoring Device into Upper Artery, Percutaneous Approach (ICD-10-PCS; 2025-02-08)
PROC: 4A133J1 Monitoring of Arterial Pulse, Peripheral, Percutaneous Approach (ICD-10-PCS; 2025-02-08)
PROC: 4A023N7 Measurement of Cardiac Sampling and Pressure, Left Heart, Percutaneous Approach (ICD-10-PCS; principal; 2025-02-10 08:45)
PROC: 027035Z Dilation of Coronary Artery, One Artery with Two Drug-eluting Intraluminal Devices, Percutaneous Approach (ICD-10-PCS; principal; 2025-02-10 08:45)
PROC: B240ZZ3 Ultrasonography of Single Coronary Artery, Intravascular (ICD-10-PCS; principal; 2025-02-10 08:45)
PROC: B2111ZZ Fluoroscopy of Multiple Coronary Arteries using Low Osmolar Contrast (ICD-10-PCS; principal; 2025-02-10 08:45)
DX: I49.01 Ventricular fibrillation (principal); I21.4 Non-ST elevation (NSTEMI) myocardial infarction; I50.23 Acute on chronic systolic (congestive) heart failure; J69.0 Pneumonitis due to inhalation of food and vomit; J96.01 Acute respiratory failure with hypoxia; I11.0 Hypertensive heart disease with heart failure; I48.91 Unspecified atrial fibrillation; I46.2 Cardiac arrest due to underlying cardiac condition; I10 Essential (primary) hypertension; I49.3 Ventricular premature depolarization; N40.0 Benign prostatic hyperplasia without lower urinary tract symptoms; I25.10 Atherosclerotic heart disease of native coronary artery without angina pectoris; I25.5 Ischemic cardiomyopathy; E78.5 Hyperlipidemia, unspecified; R79.1 Abnormal coagulation profile; Z79.899 Other long term (current) drug therapy
CPT/HCPCS: 36415; 36600; 70450; 71045; 71275; 72125; 80048; 80053; 80306; 80320; 81001; 82805; 83605; 83735; 83880; 84132; 84145; 84484; 85025; 85027; 85379; 85610; 85730; 87040; 87070; 87205; 92978; 93005; 93270; 93306; 93458; 94002; 94003; 94640; 96361; 96365; 96366; 96367; 96368; 99285